=== PATIENT | female | born 1935 | race Caucasian/White ===

== ENCOUNTER 2017-02-28 15:08 | Inpatient (IN) | payer MEDICARE ==
[2017-02-28] MEDS ORDERED: Acetaminophen 500 MG TAB ONE (15:44)
[2017-02-28] MEDS ORDERED: Clindamycin/D5W 900 mg/50 ml Premix Bag ONE (15:49)
--- NOTE | 2017-02-28 16:05 | RAD ---
FRONTAL VIEW CHEST 02/28/17 No prior comparison. INDICATION: Fever. FINDINGS: There is subtle patchy density of the left lung base with slight blunting of the left costophrenic s ulcus. The cardiac silhouette is accentuated by portable technique. There is vascular calcification. Numerous leads overlie the chest limiting detail. IMPRESSION: Patchy left basilar opacity which may be on the basis of small volume pleural fluid with adjacent at electasis and/or pneumonia. Followup may be obtained with dedicated two view chest for continued ass essment. POS: NANCY
[2017-02-28 16:23] LABS: Lactic Acid - Sepsis 1.8 mmol/L (0.5-2.2)
[2017-02-28 16:24] LABS: Anion Gap 15 mmol/L (10-20); BUN (Urea Nitrogen) 19 mg/dL (9.8-20.1); Calc. Creatinine Clearance 0 mL/min (70-130); Calcium 8.9 mg/dL (7.8-10.44); Carbon Dioxide 26 mmol/L (23-31); Chloride 101 mmol/L (98-107); Estimated GFR-MDRD 34
--- NOTE | 2017-02-28 17:43 | PDOC.EVN ---
Event Note - Event Note Event Note: Patient seen and examined. Orders completed.
--- NOTE | 2017-02-28 18:01 | HP ---
DATE OF ADMISSION: 02/28/2017 PRIMARY CARE PHYSICIAN: Dr. Almanza. Patient resides at [facility]. CHIEF COMPLAINT: Transfer from [facility] for sepsis. HISTORY OF PRESENT ILLNESS: Patient is an 81-year-old female, residing at [facility], currently wheelchair dependent, who was brought into the emergency room with altered mentation along with pain in bilateral buttocks. Her workup in the emergency room was consistent with bilateral buttock abscess. She underwent an incision and drainage at [facility] under local anesthesia. She was transferred to this facility for hospital admission. Please note that due to patient's underlying cognitive status, not much information is available from the patient. History was obtained from the ER records. At this time, she denies any fevers, chills, or pain. She appears comfortable. PAST MEDICAL HISTORY: 1. Diabetes mellitus, type 2. 2. Hypertension. 3. Chronic diastolic heart failure with recent echocardiogram showing ejection fraction 60%-65% with grade 1 diastolic dysfunction. 4. Underlying dementia. 5. Hyperlipidemia. 6. Essential tremors. 7. Depression and anxiety. 8. Peripheral neuropathy. 9. Irritable bowel syndrome. 10. Gastroesophageal reflux disease. 11. Deconditioning. 12. Chronic kidney disease, stage 3. 13. Degenerative joint disease. PAST SURGICAL HISTORY: 1. Cholecystectomy. 2. Appendectomy. 3. Hysterectomy. 4. Cataract surgery. 5. Hiatal hernia repair. 6. Tonsillectomy. 7. Incision and drainage of the buttock abscess earlier today. ALLERGIES: Patient is allergic to CIPROFLOXACIN. CURRENT MEDICATIONS: According to the [facility] record. 1. Xanax 0.25 mg 3 times a day. 2. Aspirin 81 mg daily. 3. Bumex 0.5 mg daily. 4. Cymbalta 30 mg daily. 5. Aricept 5 mg at bedtime. 6. Gabapentin 600 mg 3 times a day. 7. Glimepiride 1 mg twice a day. 8. Loratadine 10 mg daily. 9. Meloxicam 15 mg daily. 10. Metformin 500 mg twice a day. 11. Milk of magnesia as needed. 12. MiraLax as needed. 13. Primidone 150 mg at bedtime. 14. Nystatin powder as needed. 15. Omeprazole 20 mg daily. 16. Plavix 75 mg daily. 17. Tramadol 50 mg at bedtime and p.r.n. 18. Tylenol as needed. SOCIAL HISTORY: As discussed above, the patient is wheelchair dependent. No smoking, alcohol, or drug use. FAMILY HISTORY: Cannot be obtained from the patient due to current cognitive status. REVIEW OF SYSTEMS: Cannot be obtained from the patient due to current cognitive status. PHYSICAL EXAMINATION: VITAL SIGNS: Current vital signs showed temperature of 101.7, respirations 20, pulse rate of 97, blood pressure of 149/68 with O2 saturation 96% on room air. GENERAL: An 81-year-old female appears to be in no distress. HEENT: Head, atraumatic and normocephalic. Sclerae anicteric. Moist mucous membrane. No oral lesion. NECK: Supple, no JVD, no carotid bruit. LUNGS: Show decreased air entry at bilateral bases with scattered rales. HEART: S1, S2 present. Regular rate and rhythm. No rubs or gallops. There is 2/6 systolic murmur over the mitral area. ABDOMEN: Obese, soft. Bowel sounds present. EXTREMITIES: Trace edema in bilateral lower extremities. SKIN: Warm and dry. LYMPH NODES: No palpable lymph nodes in the neck. NEUROLOGIC/PSYCHIATRIC EXAMINATION: Could not be reliably done due to current cognitive status. SKIN: The patient had gluteal abscess that was drained. We will assess with wound care. PERIPHERAL VASCULAR: Radial pulses palpable bilaterally. MUSCULOSKELETAL: No joint swelling or tenderness. LABORATORY FINDINGS: CBC showed WBC 12.5 with hemoglobin 11.3, hematocrit 34.9 , platelets 322. Chemistries showed sodium 137, potassium 4.5, chloride 97, bicarbonate 29, BUN of 19.6, creatinine 1.4, AST and ALT in normal range, albumin of 3.9. Lactic acid was 2.6. EKG by my review - SR. IMPRESSION: 1. Sepsis with acute organ dysfunction, secondary to gluteal abscess, status post incision and drainage. 2. Diabetes mellitus, type 2. 3. Acute kidney injury on chronic kidney disease, stage 3. 4. 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 5. Anxiety and depression. 6. Chronic diastolic heart failure. 7. Dementia. 8. Hypertension. 9. Dyslipidemia. 10. Gastroesophageal reflux disease. 11. Irritable bowel syndrome. 12. Degenerative joint disease, chronic anemia. PLAN: 1. The patient will be monitored on the telemetry unit. She will be started on broad-spectrum antibiotics. Blood cultures were done at [facility] per ER physician's report. We will carefully continue IV fluids due to history of diastolic heart failure. Insulin sliding scale. We will repeat lactic acid. General Surgery has been consulted. We will monitor closely for delirium. The son was notified by the ER nurse. 2. Code status: FULL CODE for now. To be clarified with the family when they arrive. Surrogate decision maker to be verified with the family when they arrive. 3. A.m. labs. MTDD
[2017-02-28] MEDS ORDERED: Acetaminophen 650 MG Suppository PR PRN (18:20)
[2017-02-28] MEDS ORDERED: Ondansetron ODT 4 MG TAB PO PRN (18:20)
[2017-02-28] MEDS ORDERED: Dextrose 5% in Water 1,000 ML IV PRN (18:20)
[2017-02-28] MEDS ORDERED: Polyethylene Glycol 3350 17 GM Packet PO PRN ×2 (18:20)
[2017-02-28] MEDS ORDERED: Milk Of Magnesia 30 ML UDCUP PO PRN (18:20)
[2017-02-28] MEDS ORDERED: Diabetic Tussin 200 MG/10 ML UDCUP PO PRN (18:20)
[2017-02-28] MEDS ORDERED: Bisacodyl 10 MG SUPP PR PRN (18:20)
[2017-02-28] MEDS ORDERED: VANCOMYCIN/ RENALLY ADJUST ANTIBIOTICS IVPB PRN (18:20)
[2017-02-28] MEDS ORDERED: Eucerin (Mineral Oil/Petrolatum,White) 30 gm Jar TOP PRN (18:20)
[2017-02-28] MEDS ORDERED: hydrALAZINE 20 MG/ML VIAL SLOW IVP PRN (18:20)
[2017-02-28] MEDS ORDERED: Ondansetron HCl/PF 4 MG/2 ML Vial IVP PRN (18:20)
[2017-02-28] MEDS ORDERED: Senokot 8.6 MG TAB PO PRN (18:20)
[2017-02-28] MEDS ORDERED: Loratadine 10 MG TAB PO PRN (18:20)
[2017-02-28] MEDS ORDERED: Nitroglycerin 0.4 MG TAB (25 Tab Bottle) PO PRN (18:20)
[2017-02-28] MEDS ORDERED: Dextrose 50% Abboject 50 ML SYRINGE SLOW IVP PRN (18:20)
[2017-02-28] MEDS ORDERED: Insulin Regular 300 UNITS/3 ML VIAL SC PRN (18:20)
[2017-02-28] MEDS ORDERED: Meropenem 1 GM in Sodium Chloride 0.9% 100 ML IVPB SCH (19:00)
[2017-02-28] MEDS: ALPRAZolam 0.25 MG TAB PO SCH (20:43)
[2017-02-28] MEDS: Donepezil HCl 5 MG TAB PO SCH (20:43)
[2017-02-28] MEDS: Famotidine 20 MG TAB PO SCH (20:43)
[2017-02-28] MEDS: Docusate 100 MG CAP PO SCH (20:43)
[2017-02-28] MEDS: Gabapentin 300 MG CAP PO SCH (20:44)
[2017-02-28] MEDS: Nystatin Powder 15 GM BOT TOP SCH (20:44)
[2017-02-28] MEDS: Heparin 5,000 UNITS/ML VIAL SC SCH (20:44)
[2017-02-28] MEDS: Primidone 50 MG TAB PO SCH (20:46)
[2017-02-28] MEDS: traMADol HCl 50 MG TAB PO SCH (20:46)
[2017-02-28] MEDS ORDERED: Famotidine 20 MG TAB PO SCH (21:00)
[2017-02-28] MEDS: Sodium Chloride 0.9% 1,000 ML IV SCH (21:07)
[2017-03-01 01:06] LABS: Bilirubin Negative (Negative); Blood, Urine Trace (Negative); Glucose, Urine (Dipstick) Negative (Negative); Ketone, Urine Negative (Negative); Nitrite Negative (Negative); Protein, Urine (Dipstick) 30 mg/dL (Neg-Trace); Urobilinogen 0.2 mg/dL (0.2-1.0)
[2017-03-01 01:09] LABS: Bacteria/HPF None Seen HPF (None Seen); Hyaline Casts/LPF 0-3 HYALINE CAST LPF (0-3 Hyaline); Squamous Epithelial None Seen HPF (0-3)
[2017-03-01 01:16] LABS: Transitional Epithelial 0-3 HPF (0-3); Yeast-All Forms None Seen HPF (None Seen)
--- NOTE | 2017-03-01 04:48 | CON ---
DATE OF CONSULTATION: 03/01/2017 REASON FOR CONSULTATION: Bilateral buttock abscesses. HISTORY: Ms. Rene is an 81-year-old [facility] patient, who presented to her local emergency r oom with altered mentation and pain in bilateral buttocks. She was determined to be septic with amado lulitis and bilateral buttock abscesses. She underwent I and D as both buttock abscesses in [facility] and had packing of the abscess cavities, was transferred to [place] for admission. The patien patrice is no longer complaining of pain and says that she is feeling okay. She is able to answer simple questions, but she is unable to provide much history. For example, she is unable to say how long he leah langford has been bothering her and whether she has had any unusual activity or changes in her routi ne. She is nonambulatory and uses a wheelchair to get around in the [facility], and is unable to tell me whether she has a pad on her wheelchair. PAST MEDICAL HISTORY: Type 2 diabetes, hypertension, mild diastolic heart failure with preserved ej ection fraction of 60%-65%, dementia, hyperlipidemia, GERD, chronic renal insufficiency, and periphe ral neuropathy. PAST SURGICAL HISTORY: Open cholecystectomy, open appendectomy, hysterectomy, cataracts, hiatal her ender repair, tonsillectomy, and bilateral buttock abscess drainage. ALLERGIES: She has a reported allergy to CIPROFLOXACIN. OUTPATIENT MEDICATIONS: Include Xanax, aspirin, Bumex, Cymbalta, Aricept, gabapentin, glimepiride, loratadine, meloxicam, metformin, primidone, omeprazole, Plavix, and multiple p.r.n. SOCIAL HISTORY: She does not give any history of alcohol, drug, or tobacco abuse. She resides in a [facility] and is nonambulatory using a wheelchair to get around. FAMILY HISTORY: Noncontributory. REVIEW OF SYSTEMS: Very limited, but the patient denies hurting anywhere besides her buttocks. She specifically denies cough, sore throat, runny nose, dysuria or frequency or diarrhea or abdominal p ain. PHYSICAL EXAMINATION: VITAL SIGNS: Patient has been afebrile since her admission. Heart rate in the 80s, respirations 20 , 97% saturated on low flow oxygen. Blood pressure 140/64. GENERAL: Reveals a pleasant elderly woman in no acute distress, who is lying on an air mattress. S he appears completely comfortable. She is not flushed or toxic in appearance. She is not jaundiced or icteric. HEENT: Unremarkable. NECK: Supple, without lymphadenopathy or thyroid nodules. HEART: Regular in its rate and rhythm without murmurs, rubs, or gallops. LUNGS: Clear to auscultation bilaterally. ABDOMEN: Soft, nontender, nondistended with multiple healed surgical incisions and no palpable mass es or hernias. EXTREMITIES: Warm and well perfused without edema. On bilateral buttock, she has indurated areas w ith a central incision and the cavity, which is packed. There is no undrained abscess identified, j ust induration tissues surrounding cavity. No expressible pus and no evidence of the deep tracking. She has moderate cellulitis of both buttocks. NEUROLOGIC: No focal deficits, but diffusely weak. PSYCHIATRIC: Pleasant and oriented to self and to being in the hospital. LABORATORY DATA: Creatinine mildly elevated at 1.48. Lactate is 1.8. There is no recent CBC in [facility] computer. ASSESSMENT: Bilateral buttock abscesses, which appear to be adequately drained. We are going to co ntinue with packing and antibiotics. The cellulitis does not improve and imaging can be considered to make sure there is no deep extension of the infectious process, but this does not appear to be [facility] case clinically. I will continue to follow the patient with the Wound Care team.
[2017-03-01 05:34] LABS: #Eosinphils 0.3 thou/uL (0.0-0.7); #Lymphocytes 1.4 thou/uL (1.20-3.40); #Monocytes 0.9 thou/uL (0.11-0.59); #Neutrophils 6.4 thou/uL (1.40-6.50); %Basophils 0.5 % (0.0-1.0); %Lymphocytes 15.9 % (21.0-51.0); %Monocytes 9.8 % (0.0-10.0); Hematocrit 28.2 % (36.0-47.0); Mean Platelet Volume 6.6 fL (7.4-10.4); Red Blood Cell (RBC) Count 2.81 mill/uL (4.20-5.40)
[2017-03-01 06:04] LABS: ALT (SGPT) 8 U/L (8-55); AST (SGOT) 10 U/L (5-34); Alkaline Phosphatase 53 U/L (40-150); Anion Gap 9 mmol/L (10-20); BUN (Urea Nitrogen) 15 mg/dL (9.8-20.1); Bilirubin, Total 0.5 mg/dL (0.2-1.2); Calc. Creatinine Clearance 47 mL/min (70-130); Calcium 8.7 mg/dL (7.8-10.44); Carbon Dioxide 28 mmol/L (23-31); Chloride 105 mmol/L (98-107); Estimated GFR-MDRD 48; Globulin 3.1 g/dL (2.4-3.5); Protein, Total 6.2 g/dL (6.0-8.3)
[2017-03-01] MEDS ORDERED: FLU VACC TS2017-18 (>65YR) 0.5 ML SYRINGE IM ONE (09:00)
[2017-03-01] MEDS: Meropenem 1 GM, Admixture Fee 1 EACH in Sodium Chloride 0.9% 100 ML IVPB SCH ×2 (09:16→20:51)
[2017-03-01] MEDS: Multivit, Therapeutic 1 TAB PO SCH (09:21)
[2017-03-01] MEDS: ALPRAZolam 0.25 MG TAB PO SCH ×3 (09:21→20:54)
[2017-03-01] MEDS: Aspirin 81 mg Enteric Coated Tablet PO SCH (09:21)
[2017-03-01] MEDS: Folic Acid 1 MG TAB PO SCH (09:21)
[2017-03-01] MEDS: Gabapentin 300 MG CAP PO SCH ×3 (09:21→20:53)
[2017-03-01] MEDS: Docusate 100 MG CAP PO SCH ×2 (09:21→20:54)
[2017-03-01] MEDS: Clopidogrel Bisulfate 75 MG TAB PO SCH (09:21)
[2017-03-01] MEDS: Heparin 5,000 UNITS/ML VIAL SC SCH ×2 (09:39→20:51)
[2017-03-01] MEDS: Nystatin Powder 15 GM BOT TOP SCH ×2 (09:43→21:07)
--- NOTE | 2017-03-01 10:02 | PDOC.PN ---
- Subjective Encounter Start Date: 03/01/17 Encounter Start Time: 09:25 Subjective: No specific complaint. -: Feels better. - Objective Resuscitation Status: Resuscitation Status FULL:Full Resuscitation Vital Signs & Weight: Vital Signs (12 hours) Temp Pulse Resp BP Pulse Ox 03/01/17 07:58 99 F 85 20 150/67 H 97 03/01/17 04:00 98.5 F 76 20 136/68 98 03/01/17 00:00 98.1 F 71 20 138/63 98 Weight Weight 166 lb 12.8 oz I&O: 02/28/17 03/01/17 03/02/17 06:59 06:59 06:59 Intake Total 812 Output Total 620 Balance 192 Result Diagrams: 03/01/17 05:03 03/01/17 05:03 Additional Labs: Accuchecks 02/28/17 20:38 POC Glucose 183 H Phys Exam - Physical Examination Constitutional: NAD HEENT: PERRLA, moist MMs, sclera anicteric Neck: no JVD Respiratory: clear to auscultation bilateral Cardiovascular: RRR Gastrointestinal: soft, non-tender Musculoskeletal: no edema Psychiatric: A&O x 3 Dx/Plan (1) Sepsis Code(s): A41.9 - SEPSIS, UNSPECIFIED ORGANISM Status: Acute Plan: Continue antibiotics.. Comment: Most likely from buttock abscesses.. Clinicalyy better. (2) CHF (congestive heart failure) Code(s): I50.9 - HEART FAILURE, UNSPECIFIED Status: Chronic Qualifiers: Congestive heart failure type: diastolic Plan: continue current management. 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 - Plan -: Continue current therapy.. * .
[2017-03-01] MEDS ORDERED: Vancomycin HCl 1 GM in Premix Bag 1 BAG IVPB SCH (12:00)
[2017-03-01 13:16] VITALS: BMI 26.9
--- NOTE | 2017-03-01 13:30 | PRG ---
DATE OF SERVICE: 03/01/2017 Ms. Rene is growing Staph aureus from her bilateral buttock abscesses. The cellulitis is slightl y improved. The induration is about the same. The abscess cavities are clean. No expressible puru lence. Wound care team is to continue doing daily irrigation and packing. No new recommendations.
[2017-03-01] MEDS: Sodium Chloride 0.9% 1,000 ML IV SCH (14:25)
[2017-03-01] MEDS: Acetaminophen 325 MG TAB PO PRN (17:34)
[2017-03-01] MEDS: Donepezil HCl 5 MG TAB PO SCH (20:52)
[2017-03-01] MEDS: Primidone 50 MG TAB PO SCH (20:52)
[2017-03-01] MEDS: traMADol HCl 50 MG TAB PO SCH (20:52)
[2017-03-01] MEDS: Famotidine 20 MG TAB PO SCH (20:54)
[2017-03-02 05:04] LABS: #Eosinphils 0.3 thou/uL (0.0-0.7); #Lymphocytes 1.4 thou/uL (1.20-3.40); %Basophils 0.3 % (0.0-1.0); %Eosinophils 3.5 % (0.0-10.0); %Lymphocytes 16.1 % (21.0-51.0); %Monocytes 11.2 % (0.0-10.0); Hematocrit 32.8 % (36.0-47.0); Mean Platelet Volume 6.5 fL (7.4-10.4); White Blood Cell (WBC) Count 8.8 thou/uL (4.8-10.8)
[2017-03-02 05:23] LABS: ALT (SGPT) 10 U/L (8-55); AST (SGOT) 13 U/L (5-34); Alkaline Phosphatase 58 U/L (40-150); Anion Gap 9 mmol/L (10-20); BUN (Urea Nitrogen) 11 mg/dL (9.8-20.1); Bilirubin, Total 0.3 mg/dL (0.2-1.2); Calc. Creatinine Clearance 45 mL/min (70-130); Calcium 9.1 mg/dL (7.8-10.44); Carbon Dioxide 31 mmol/L (23-31); Chloride 100 mmol/L (98-107); Estimated GFR-MDRD 46; Globulin 3.3 g/dL (2.4-3.5); Protein, Total 6.6 g/dL (6.0-8.3)
[2017-03-02] MEDS: Meropenem 1 GM, Admixture Fee 1 EACH in Sodium Chloride 0.9% 100 ML IVPB SCH ×2 (08:55→20:00)
[2017-03-02] MEDS: ALPRAZolam 0.25 MG TAB PO SCH ×3 (08:57→20:02)
[2017-03-02] MEDS: Aspirin 81 mg Enteric Coated Tablet PO SCH (08:57)
[2017-03-02] MEDS: Bumetanide 1 MG TAB PO SCH (08:57)
[2017-03-02] MEDS: Nystatin Powder 15 GM BOT TOP SCH ×2 (08:58→21:26)
[2017-03-02] MEDS: Multivit, Therapeutic 1 TAB PO SCH (08:58)
[2017-03-02] MEDS: Docusate 100 MG CAP PO SCH ×2 (08:58→20:02)
[2017-03-02] MEDS: Heparin 5,000 UNITS/ML VIAL SC SCH ×2 (08:58→20:02)
[2017-03-02] MEDS: Gabapentin 300 MG CAP PO SCH ×3 (08:58→20:02)
[2017-03-02] MEDS: Clopidogrel Bisulfate 75 MG TAB PO SCH (08:58)
[2017-03-02] MEDS: Folic Acid 1 MG TAB PO SCH (08:58)
[2017-03-02] MEDS: Sodium Chloride 0.9% 1,000 ML IV SCH (09:03)
--- NOTE | 2017-03-02 09:16 | PDOC.PN ---
- Subjective Encounter Start Date: 03/02/17 Encounter Start Time: 08:50 Subjective: No specific complaint. -: Feels better. -: Had high grade fever yesterday, BxC sent. - Objective Resuscitation Status: Resuscitation Status FULL:Full Resuscitation MAR Reviewed: Yes Vital Signs & Weight: Vital Signs (12 hours) Temp Pulse Resp BP Pulse Ox 03/02/17 07:55 98.6 F 83 20 167/74 H 97 03/02/17 04:00 98.4 F 83 20 184/79 H 03/02/17 03:54 97 Weight Admit Weight 168 lb 12.8 oz Weight 166 lb 12.8 oz I&O: 03/01/17 03/02/17 03/03/17 06:59 06:59 06:59 Intake Total 812 1645 Output Total 620 2250 Balance 192 -605 Result Diagrams: 03/02/17 04:01 03/02/17 04:01 Additional Labs: Accuchecks 03/02/17 03/01/17 03/01/17 05:47 20:56 16:42 POC Glucose 182 H 202 H 145 H 03/01/17 02/28/17 11:35 18:18 POC Glucose 156 H 187 H Radiology Reviewed by me: Yes Phys Exam - Physical Examination Constitutional: NAD HEENT: PERRLA, moist MMs, sclera anicteric Neck: no JVD Respiratory: clear to auscultation bilateral Cardiovascular: RRR Gastrointestinal: soft, non-tender, no distention, positive bowel sounds Musculoskeletal: no edema Neurological: moves all 4 limbs Psychiatric: normal affect Dx/Plan (1) Sepsis Code(s): A41.9 - SEPSIS, UNSPECIFIED ORGANISM Status: Acute Plan: f/u BxC Comment: Most likely from buttock abscesses.. Clinicalyy better. 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 - Plan -: Continue current management. -: f/u BxC. * .
[2017-03-02] MEDS: traMADol HCl 50 MG TAB PO PRN (10:09)
[2017-03-02 11:32] LABS: Vancomycin, Trough 8.8 ug/mL
[2017-03-02] MEDS: Acetaminophen 325 MG TAB PO PRN (12:05)
[2017-03-02] MEDS: Vancomycin HCl 1.5 GM in Sodium Chloride 0.9% 250 ML 300 ML IVPB SCH (13:00)
[2017-03-02] MEDS: Primidone 50 MG TAB PO SCH (20:02)
[2017-03-02] MEDS: Donepezil HCl 5 MG TAB PO SCH (20:02)
[2017-03-02] MEDS: Famotidine 20 MG TAB PO SCH (20:03)
[2017-03-02] MEDS: traMADol HCl 50 MG TAB PO SCH (20:03)
[2017-03-03] MEDS: Sodium Chloride 0.9% 1,000 ML IV SCH (05:17)
[2017-03-03] MEDS: Meropenem 1 GM, Admixture Fee 1 EACH in Sodium Chloride 0.9% 100 ML IVPB SCH ×2 (08:36→21:19)
[2017-03-03] MEDS: Aspirin 81 mg Enteric Coated Tablet PO SCH (08:39)
[2017-03-03] MEDS: Gabapentin 300 MG CAP PO SCH ×3 (08:39→21:18)
[2017-03-03] MEDS: Docusate 100 MG CAP PO SCH ×2 (08:39→21:19)
[2017-03-03] MEDS: Folic Acid 1 MG TAB PO SCH (08:39)
[2017-03-03] MEDS: Clopidogrel Bisulfate 75 MG TAB PO SCH (08:39)
[2017-03-03] MEDS: Bumetanide 1 MG TAB PO SCH (08:39)
[2017-03-03] MEDS: Heparin 5,000 UNITS/ML VIAL SC SCH ×2 (08:40→21:20)
[2017-03-03] MEDS: Nystatin Powder 15 GM BOT TOP SCH ×2 (08:41→21:20)
[2017-03-03] MEDS: Multivit, Therapeutic 1 TAB PO SCH (08:41)
[2017-03-03] MEDS: ALPRAZolam 0.25 MG TAB PO SCH ×3 (09:51→21:19)
--- NOTE | 2017-03-03 11:02 | PDOC.PN ---
- Subjective Encounter Start Date: 03/03/17 Encounter Start Time: 10:00 Patient seen and examined. No new complaints. No overnight events - Objective Resuscitation Status: Resuscitation Status FULL:Full Resuscitation MAR Reviewed: Yes Vital Signs & Weight: Vital Signs (12 hours) Temp Pulse Resp BP Pulse Ox 03/03/17 09:33 95 03/03/17 07:43 98.3 F 80 18 164/72 H 95 03/03/17 04:06 96 03/03/17 04:00 98.5 F 82 16 159/70 H Weight Admit Weight 168 lb 12.8 oz Weight 166 lb 12.8 oz I&O: 03/02/17 03/03/17 03/04/17 06:59 06:59 06:59 Intake Total 1645 3374 Output Total 2250 2475 Balance -605 899 Result Diagrams: 03/02/17 04:01 03/02/17 04:01 Additional Labs: Accuchecks 03/03/17 03/02/17 03/02/17 05:15 20:31 16:27 POC Glucose 180 H 217 H 174 H 03/02/17 11:53 POC Glucose 157 H EKG Reviewed by me: Yes (Tele SR) Phys Exam - Physical Examination Constitutional: NAD Respiratory: no wheezing, no rhonchi Cardiovascular: RRR, no rub Gastrointestinal: soft, non-tender, positive bowel sounds Neurological: moves all 4 limbs Dx/Plan - Plan IMPRESSION: 1. Sepsis with acute organ dysfunction, secondary to gluteal abscess.s/p incision and drainage. 2. Diabetes mellitus, type 2. on sliding scale 3. Acute kidney injury on chronic kidney disease, stage 3. improving 4. Diabetic peripheral neuropathy 5. Anxiety and depression. 6. Chronic diastolic heart failure. Compensated 7. Dementia. 8. Hypertension. 9. Dyslipidemia. 10. Gastroesophageal reflux disease. 11. Irritable bowel syndrome. 12. Degenerative joint disease 13. Chronic anemia. PLAN: * cont Vancomycin/Zosyn * AM labs * Transfer to medical * Gen surg following * Cont to monitor * Cont current meds as below * dc IVF due to h/o CHF * Consult ID for Antibiotic recommendations Review of Systems - Review of Systems Respiratory: negative: Cough, Dry, Shortness of Breath, Hemoptysis, SOB with Excertion, Pleuritic Pain, Sputum, Wheezing Cardiovascular: negative: Chest Pain, Palpitations, Orthopnea, Paroxysmal Noc. Dyspnea, Edema, Light Headedness, Other Gastrointestinal: negative: Nausea, Vomiting, Abdominal Pain, Diarrhea, Constipation, Melena, Hematochezia, Other - Medications/Allergies Allergies/Adverse Reactions: Allergies Allergy/AdvReac Type Severity Reaction Status Date / Time ciprofloxacin [From Cipro] Allergy Verified 02/28/17 18:36 Medications: Current Medications Acetaminophen (Tylenol) 650 mg PO Q4H PRN PRN Reason: Headache/Fever or Pain Last Admin: 03/02/17 12:05 Dose: 650 mg Acetaminophen (Tylenol) 650 mg DC Q4H PRN PRN Reason: Headache/Fever or Pain Albuterol/Ipratropium (Duoneb) 3 ml NEB [id number] PRN PRN Reason: SOB &/or Wheezing Alprazolam (Xanax) 0.25 mg PO TID [facility] Last Admin: 03/03/17 09:51 Dose: 0.25 mg Aspirin (Ecotrin) 81 mg PO DAILY [facility] Last Admin: 03/03/17 08:39 Dose: 81 mg Bisacodyl (Dulcolax) 10 mg DC Q24H PRN PRN Reason: Constipation Bumetanide (Bumex) 0.5 mg PO DAILY [facility] Last Admin: 03/03/17 08:39 Dose: 0.5 mg Clopidogrel Bisulfate (Plavix) 75 mg PO DAILY [facility] Last Admin: 03/03/17 08:39 Dose: 75 mg Dextrose/Water (Dextrose 50%) 25 gm SLOW IVP PRN PRN PRN Reason: Hypoglycemia Docusate Sodium (Colace) 100 mg PO BID [facility] Last Admin: 03/03/17 08:39 Dose: 100 mg Donepezil HCl (Aricept) 5 mg PO HS [facility] Last Admin: 03/02/17 20:02 Dose: 5 mg Duloxetine HCl (Cymbalta) 30 mg PO DAILY [facility] Last Admin: 03/03/17 08:39 Dose: 30 mg Famotidine (Pepcid) 20 mg PO Q24HR [facility] Last Admin: 03/02/17 20:03 Dose: 20 mg Folic Acid (Folvite) 1 mg PO DAILY [facility] Last Admin: 03/03/17 08:39 Dose: 1 mg Gabapentin (Neurontin) 600 mg PO TID [facility] Last Admin: 03/03/17 08:39 Dose: 600 mg Glucagon (Glucagon) 1 mg IM PRN PRN PRN Reason: Hypoglycemia Guaifenesin (Robitussin Sf) 200 mg PO Q4H PRN PRN Reason: Cough Heparin Sodium (Porcine) (Heparin) 5,000 units SC BID [facility] Last Admin: 03/03/17 08:40 Dose: 5,000 units Hydralazine HCl (Apresoline) 10 mg SLOW IVP Q4H PRN PRN Reason: SBP Greater Than 180 Last Admin: 03/02/17 12:05 Dose: 10 mg Dextrose/Water (D5w) 1,000 mls @ 0 mls/hr IV .Q0M PRN; As Directed PRN Reason: Hypoglycemia Sodium Chloride (Normal Saline 0.9%) 1,000 mls @ 50 mls/hr IV .Q20H [facility] Last Admin: 03/03/17 05:17 Dose: 1,000 mls Meropenem 1 gm/ Miscellaneous Medication 1 each/ Sodium Chloride 100 mls @ 200 mls/hr IVPB 0800,2000 [facility] Last Admin: 03/03/17 08:36 Dose: 100 mls Vancomycin HCl 1.5 gm/ Sodium (Chloride) 300 mls @ 200 mls/hr IVPB 1200 [facility] Last Admin: 03/02/17 13:00 Dose: 300 mls Insulin Human Regular (Humulin R) 0 units SC .MILD SLIDING SCALE PRN PRN Reason: Mild Correctional Scale Insulin Human Regular (Humulin R) 0 units SC .BEDTIME SLIDING SC PRN PRN Reason: Bedtime Correctional Scale Loratadine (Claritin) 10 mg PO DAILYPRN PRN PRN Reason: Allergies Magnesium Hydroxide (Milk Of Magnesium) 30 ml PO DAILYPRN PRN PRN Reason: Constipation Mineral Oil/White Petrolatum (Eucerin Cream) 0 gm TOP BIDPRN PRN PRN Reason: Dry Skin Miscellaneous Medication (Pharmacy To Dose) 1 each IVPB PRN PRN PRN Reason: Pharmacy to dose Multivitamins (Theragran) 1 tab PO DAILY [facility] Last Admin: 03/03/17 08:41 Dose: 1 tab Nitroglycerin (Nitrostat) 0.4 mg PO Q5MIN PRN PRN Reason: Chest Pain Nystatin (Mycostatin Powder) 0 gm TOP BID [facility] Last Admin: 03/03/17 08:41 Dose: 1 applic Ondansetron HCl (Zofran Odt) 4 mg PO Q6H PRN PRN Reason: Nausea/Vomiting Ondansetron HCl (Zofran) 4 mg IVP Q6H PRN PRN Reason: Nausea/Vomiting Polyethylene Glycol (Miralax) 17 gm PO DAILYPRN PRN PRN Reason: Constipation Primidone (Mysoline) 150 mg PO HS [facility] Last Admin: 03/02/17 20:02 Dose: 150 mg Senna (Senokot) 2 tab PO HSPRN PRN PRN Reason: Constipation Last Admin: 03/02/17 17:55 Dose: 2 tab Sodium Chloride (Flush - Normal Saline) 10 ml IVF Q12HR [facility] Last Admin: 03/03/17 08:38 Dose: Not Given Sodium Chloride (Flush - Normal Saline) 10 ml IVF PRN PRN PRN Reason: Saline Flush Tramadol HCl (Ultram) 50 mg PO Q4H PRN PRN Reason: Moderate Pain (4-6) Last Admin: 03/02/17 10:09 Dose: 50 mg Tramadol HCl (Ultram) 50 mg PO HS [facility] Last Admin: 03/02/17 20:03 Dose: 50 mg
[2017-03-03] MEDS: Insulin Regular 300 UNITS/3 ML VIAL SC PRN (11:58)
[2017-03-03] MEDS: Vancomycin HCl 1.5 GM in Sodium Chloride 0.9% 250 ML 300 ML IVPB SCH (11:59)
[2017-03-03] MEDS: traMADol HCl 50 MG TAB PO PRN (14:09)
[2017-03-03] MEDS: Acetaminophen 325 MG TAB PO PRN (14:09)
[2017-03-03] MEDS: traMADol HCl 50 MG TAB PO SCH (21:19)
[2017-03-03] MEDS: Donepezil HCl 5 MG TAB PO SCH (21:19)
[2017-03-03] MEDS: Primidone 50 MG TAB PO SCH (21:20)
[2017-03-03] MEDS: Famotidine 20 MG TAB PO SCH (21:22)
--- NOTE | 2017-03-04 06:06 | PRG ---
DATE OF SERVICE: 03/03/2017 SUBJECTIVE: Ms. Rene states that she is feeling okay. Her nurse states that she is spiking feve rs in the afternoons and has done that again today. We did some blood cultures yesterday when she h ad her elevated fever. On examination, the cellulitis on her buttocks has slightly improved as has the induration more on the right than on the left. There is no expressible drainage from the I\T\D sites and the indurated area does not appear fixed to the underlying tissues, so I doubt deep extens ion. Nothing has grown yet on her blood cultures from yesterday. 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 ASSESSMENT: Cellulitis and bilateral buttock abscesses, slowly improving with antibiotics and wound treatment. No indication for surgical intervention at this time.
[2017-03-04 06:24] LABS: #Basophils 0.1 thou/uL (0.0-0.2); #Eosinphils 0.2 thou/uL (0.0-0.7); #Lymphocytes 1.3 thou/uL (1.20-3.40); #Monocytes 0.6 thou/uL (0.11-0.59); #Neutrophils 3.9 thou/uL (1.40-6.50); %Basophils 1.4 % (0.0-1.0); %Eosinophils 3.5 % (0.0-10.0); %Lymphocytes 21.4 % (21.0-51.0); %Monocytes 10.3 % (0.0-10.0); Hematocrit 30.5 % (36.0-47.0); Mean Platelet Volume 6.5 fL (7.4-10.4); Red Blood Cell (RBC) Count 3.08 mill/uL (4.20-5.40); White Blood Cell (WBC) Count 6.2 thou/uL (4.8-10.8)
[2017-03-04 06:38] LABS: ALT (SGPT) 11 U/L (8-55); AST (SGOT) 16 U/L (5-34); Alkaline Phosphatase 56 U/L (40-150); Anion Gap 10 mmol/L (10-20); BUN (Urea Nitrogen) 12 mg/dL (9.8-20.1); Bilirubin, Total 0.3 mg/dL (0.2-1.2); Calc. Creatinine Clearance 50 mL/min (70-130); Calcium 9.1 mg/dL (7.8-10.44); Carbon Dioxide 31 mmol/L (23-31); Chloride 99 mmol/L (98-107); Estimated GFR-MDRD 51; Globulin 3.5 g/dL (2.4-3.5); Magnesium 2.2 mg/dL (1.6-2.6); Protein, Total 6.6 g/dL (6.0-8.3)
[2017-03-04] MEDS: Multivit, Therapeutic 1 TAB PO SCH (08:24)
[2017-03-04] MEDS: Docusate 100 MG CAP PO SCH ×2 (08:25→20:07)
[2017-03-04] MEDS: Gabapentin 300 MG CAP PO SCH ×3 (08:25→20:08)
[2017-03-04] MEDS: Aspirin 81 mg Enteric Coated Tablet PO SCH (08:26)
[2017-03-04] MEDS: Folic Acid 1 MG TAB PO SCH (08:26)
[2017-03-04] MEDS: Clopidogrel Bisulfate 75 MG TAB PO SCH (08:26)
[2017-03-04] MEDS: ALPRAZolam 0.25 MG TAB PO SCH ×3 (08:27→20:07)
[2017-03-04] MEDS: Bumetanide 1 MG TAB PO SCH (08:28)
[2017-03-04] MEDS: Nystatin Powder 15 GM BOT TOP SCH ×2 (08:30→20:09)
[2017-03-04] MEDS: Heparin 5,000 UNITS/ML VIAL SC SCH ×2 (08:30→20:14)
[2017-03-04] MEDS: Meropenem 1 GM, Admixture Fee 1 EACH in Sodium Chloride 0.9% 100 ML IVPB SCH ×2 (10:47→20:07)
[2017-03-04] MEDS: Vancomycin HCl 1.5 GM in Sodium Chloride 0.9% 250 ML 300 ML IVPB SCH (11:54)
[2017-03-04 12:05] LABS: Vancomycin, Trough 18.3 ug/mL
[2017-03-04] MEDS: traMADol HCl 50 MG TAB PO PRN (12:39)
[2017-03-04] MEDS: Insulin Regular 300 UNITS/3 ML VIAL SC PRN (17:57)
[2017-03-04] MEDS: Primidone 50 MG TAB PO SCH (20:07)
[2017-03-04] MEDS: traMADol HCl 50 MG TAB PO SCH (20:08)
[2017-03-04] MEDS: Donepezil HCl 5 MG TAB PO SCH (20:12)
[2017-03-04] MEDS: Famotidine 20 MG TAB PO SCH (20:12)
--- NOTE | 2017-03-04 20:53 | PDOC.PN ---
- Subjective Encounter Start Date: 03/04/17 Encounter Start Time: 09:00 Patient seen and examined. No new complaints. No overnight events - Objective Resuscitation Status: Resuscitation Status FULL:Full Resuscitation MAR Reviewed: Yes Vital Signs & Weight: Vital Signs (12 hours) Temp Pulse Resp BP Pulse Ox 03/04/17 20:00 98.3 F 73 20 142/78 H 99 03/04/17 11:57 98.6 F 75 16 149/68 H 99 Weight Admit Weight 168 lb 12.8 oz Weight 166 lb 12.8 oz I&O: 03/03/17 03/04/17 03/05/17 06:59 06:59 06:59 Intake Total 3374 710 1460 Output Total 4935 1700 Balance 899 710 -240 Result Diagrams: 03/04/17 05:54 03/04/17 05:54 Additional Labs: Accuchecks 03/04/17 03/04/17 03/04/17 20:20 11:57 04:22 POC Glucose 151 H 136 H 139 H 03/03/17 20:29 POC Glucose 159 H Phys Exam - Physical Examination Constitutional: NAD Respiratory: no wheezing, no rhonchi Cardiovascular: RRR, no rub Gastrointestinal: soft, non-tender, positive bowel sounds Neurological: moves all 4 limbs Dx/Plan - Plan IMPRESSION: 1. Sepsis with acute organ dysfunction, secondary to gluteal abscess.s/p incision and drainage. on Vanc/Meropenem 2. Diabetes mellitus, type 2. on sliding scale 3. Acute kidney injury on chronic kidney disease, stage 3. improving 4. Diabetic peripheral neuropathy. 5. Anxiety and depression. 6. Chronic diastolic heart failure. Compensated 7. Dementia. 8. Hypertension. 9. Dyslipidemia. 10. Gastroesophageal reflux disease. 11. Irritable bowel syndrome. 12. Degenerative joint disease 13. Chronic anemia. PLAN: * cont Vancomycin/Zosyn - ID consulted * Gen surg following * Cont to monitor * Cont current meds as below * Consult ID for Antibiotic recommendations * Cont PT * DC planning Review of Systems - Review of Systems Respiratory: negative: Cough, Dry, Shortness of Breath, Hemoptysis, SOB with Excertion, Pleuritic Pain, Sputum, Wheezing Cardiovascular: negative: Chest Pain, Palpitations, Orthopnea, Paroxysmal Noc. Dyspnea, Edema, Light Headedness, Other - Medications/Allergies Allergies/Adverse Reactions: Allergies Allergy/AdvReac Type Severity Reaction Status Date / Time ciprofloxacin [From Cipro] Allergy Verified 02/28/17 18:36 Medications: Current Medications Acetaminophen (Tylenol) 650 mg PO Q4H PRN PRN Reason: Headache/Fever or Pain Last Admin: 03/03/17 14:09 Dose: 650 mg Acetaminophen (Tylenol) 650 mg AR Q4H PRN PRN Reason: Headache/Fever or Pain Albuterol/Ipratropium (Duoneb) 3 ml NEB [id number] PRN PRN Reason: SOB &/or Wheezing Alprazolam (Xanax) 0.25 mg PO TID [facility] Last Admin: 03/04/17 20:07 Dose: 0.25 mg Aspirin (Ecotrin) 81 mg PO DAILY [facility] Last Admin: 03/04/17 08:26 Dose: 81 mg Bisacodyl (Dulcolax) 10 mg AR Q24H PRN PRN Reason: Constipation Bumetanide (Bumex) 0.5 mg PO DAILY [facility] Last Admin: 03/04/17 08:28 Dose: 0.5 mg Clopidogrel Bisulfate (Plavix) 75 mg PO DAILY [facility] Last Admin: 03/04/17 08:26 Dose: 75 mg Dextrose/Water (Dextrose 50%) 25 gm SLOW IVP PRN PRN PRN Reason: Hypoglycemia Docusate Sodium (Colace) 100 mg PO BID [facility] Last Admin: 03/04/17 20:07 Dose: 100 mg Donepezil HCl (Aricept) 5 mg PO HS [facility] Last Admin: 03/04/17 20:12 Dose: 5 mg Duloxetine HCl (Cymbalta) 30 mg PO DAILY [facility] Last Admin: 03/04/17 08:26 Dose: 30 mg Famotidine (Pepcid) 20 mg PO Q24HR [facility] Last Admin: 03/04/17 20:12 Dose: 20 mg Folic Acid (Folvite) 1 mg PO DAILY [facility] Last Admin: 03/04/17 08:26 Dose: 1 mg Gabapentin (Neurontin) 600 mg PO TID [facility] Last Admin: 03/04/17 20:08 Dose: 600 mg Glucagon (Glucagon) 1 mg IM PRN PRN PRN Reason: Hypoglycemia Guaifenesin (Robitussin Sf) 200 mg PO Q4H PRN PRN Reason: Cough Heparin Sodium (Porcine) (Heparin) 5,000 units SC BID [facility] Last Admin: 03/04/17 20:14 Dose: 5,000 units Hydralazine HCl (Apresoline) 10 mg SLOW IVP Q4H PRN PRN Reason: SBP Greater Than 180 Last Admin: 03/02/17 12:05 Dose: 10 mg Dextrose/Water (D5w) 1,000 mls @ 0 mls/hr IV .Q0M PRN; As Directed PRN Reason: Hypoglycemia Meropenem 1 gm/ Miscellaneous Medication 1 each/ Sodium Chloride 100 mls @ 200 mls/hr IVPB 0800,2000 [facility] Last Admin: 03/04/17 20:07 Dose: 100 mls Vancomycin HCl 1.5 gm/ Sodium (Chloride) 300 mls @ 200 mls/hr IVPB 1200 [facility] Last Admin: 03/04/17 11:54 Dose: 300 mls Insulin Human Regular (Humulin R) 0 units SC .MILD SLIDING SCALE PRN PRN Reason: Mild Correctional Scale Last Admin: 03/04/17 17:57 Dose: 3 units Insulin Human Regular (Humulin R) 0 units SC .BEDTIME SLIDING SC PRN PRN Reason: Bedtime Correctional Scale Loratadine (Claritin) 10 mg PO DAILYPRN PRN PRN Reason: Allergies Magnesium Hydroxide (Milk Of Magnesium) 30 ml PO DAILYPRN PRN PRN Reason: Constipation Mineral Oil/White Petrolatum (Eucerin Cream) 0 gm TOP BIDPRN PRN PRN Reason: Dry Skin Miscellaneous Medication (Pharmacy To Dose) 1 each IVPB PRN PRN PRN Reason: Pharmacy to dose Multivitamins (Theragran) 1 tab PO DAILY [facility] Last Admin: 03/04/17 08:24 Dose: 1 tab Nitroglycerin (Nitrostat) 0.4 mg PO Q5MIN PRN PRN Reason: Chest Pain Nystatin (Mycostatin Powder) 0 gm TOP BID [facility] Last Admin: 03/04/17 20:09 Dose: 1 applic Ondansetron HCl (Zofran Odt) 4 mg PO Q6H PRN PRN Reason: Nausea/Vomiting Ondansetron HCl (Zofran) 4 mg IVP Q6H PRN PRN Reason: Nausea/Vomiting Polyethylene Glycol (Miralax) 17 gm PO DAILYPRN PRN PRN Reason: Constipation Primidone (Mysoline) 150 mg PO HS [facility] Last Admin: 03/04/17 20:07 Dose: 150 mg Senna (Senokot) 2 tab PO HSPRN PRN PRN Reason: Constipation Last Admin: 03/02/17 17:55 Dose: 2 tab Sodium Chloride (Flush - Normal Saline) 10 ml IVF Q12HR [facility] Last Admin: 03/04/17 20:09 Dose: 10 ml Sodium Chloride (Flush - Normal Saline) 10 ml IVF PRN PRN PRN Reason: Saline Flush Tramadol HCl (Ultram) 50 mg PO Q4H PRN PRN Reason: Moderate Pain (4-6) Last Admin: 03/04/17 12:39 Dose: 50 mg Tramadol HCl (Ultram) 50 mg PO HS [facility] Last Admin: 03/04/17 20:08 Dose: 50 mg
--- NOTE | 2017-03-04 23:31 | CON ---
DATE OF CONSULTATION: 03/04/2017 REASON FOR CONSULTATION: Gluteal inflammatory process. HISTORY OF PRESENT ILLNESS: An 81-year-old with history of type 2 diabetes mellitus, hypertension, diastolic CHF, essential tremors, and mobility impairment secondary to neuropathy, who is a care home resident and is a wheelchair bound. Patient reportedly has frequent episodes of urinary incont inence due to inability to access the restroom facilities and lack of help from nursing staff to mov e her to the proper area, therefore, I frequently has episodes of self soilage mostly from urine and she has a cushion in the wheelchair, but it is not a ROHO cushion, anyways the patient presented wi th altered mental status and pain in the gluteal area, was seen in [facility] and had an in cision and debridement of what appeared to be an abscess, right and left gluteal region, then transf erred over here. Patient has received broad spectrum antimicrobial therapy with meropenem and vanco mycin and has experienced the improvement, consultation with General Surgery was completed and the i mpression was cellulitis and bilateral gluteal abscesses improving without indication for surgical i ntervention. Currently, Ms. Dobbs is feeling better. She denies any headaches, visual symptoms, sore throat, odynophagia, or dysphagia. No dyspnea or chest pain, no abdominal pain, and no diarrhe a. She has a Couch catheter inserted. She has chronic mobility impairment, weakness in lower extre mities. She has a chronic tremor, which is intermittent in the left upper extremity. PAST MEDICAL HISTORY: Type 2 diabetes, hypertension, diastolic CHF, hyperlipidemia, essential tremo rs, neuropathy, irritable bowel syndrome, GERD, deconditioning. PAST SURGICAL HISTORY: Includes cholecystectomy, appendectomy, hysterectomy, cataract surgery, hiat al hernia, tonsillectomy. ALLERGIES: CIPROFLOXACIN. MEDICATIONS: Xanax, aspirin, Bumex, Cymbalta, Aricept, gabapentin, glimepiride, loratadine, Meloxic am, metformin, Maalox, primidone, omeprazole, Plavix, tramadol, and currently on meropenem and vanco mycin. SOCIAL HISTORY: Wheelchair dependent, never smoker. FAMILY HISTORY: Noncontributory. PHYSICAL EXAMINATION: VITAL SIGNS: Showed normal temperature since the 03/02/2017, when she had 100 and 03/01/2017, when it was 103. SKIN EXAM: Shows the areas of ulceration in the gluteal region with the surrounding erythema. She has a peripheral IV access and Couch catheter. HEENT: Ocular movements are conjugate. Sclerae white. Pupils are equal. Oral cavity with no abno rmalities. NECK: Supple, no jugular venous distention. LUNGS: Symmetric, clear breath sounds. HEART: S1 and S2, regular rate without murmurs. No S3 or S4. ABDOMEN: Not distended. No ascites. No bladder distention and no organomegaly. EXTREMITIES: She has diffuse stiffness. She is able to move toes, but cannot lift knees from bed. She has sluggish movements in the upper extremities with intermittent intention tremor of the right upper extremity. NEUROLOGIC: She is awake, alert, oriented, follows commands, fairly decent recollection. LABORATORY DATA AND IMAGING: White cell count 9000, now at 6.2, hemoglobin 10, MCV 99, platelets 38 4, with normal differential. Sodium 136, creatinine 1.04, and transaminase is normal, albumin 3.1. Urinalysis with moderate leukocyte esterase, greater than 50 wbc's. Vancomycin trough 18.3. Micro biology with MRSA from the gluteal sample with fairly broad resistant profile except for gentamicin, linezolid, vancomycin, rifampin, and, trimethoprim sulfate CRISTHIAN for vancomycin is 1. Imaging studie s includes a chest x-ray with patchy left basilar opacity. ASSESSMENT: Neuropathy with mobility impairment, degenerative joint disease, diastolic CHF, type 2 diabetes, now with evidence of inflammatory process, right and left gluteal region, no evidence of b acteremia secondary to a methicillin-resistant Staphylococcus aureus. DISCUSSION: The process appears to be superficial and had had enough debridement in the emergency r oom. We will discontinue meropenem and continue vancomycin alone and then transitioned to combinati on of rifampin and Bactrim for 10 days following discharge, linezolid is an option as well, but [facility] are not willing to provide it. We will have to monitor blood cultures until final report. Evidently, the blood cultures turn positive, she will need a PICC line placement and protr acted IV vancomycin treatment, otherwise, Bactrim and rifampin alone.
--- OUTSIDE RECORDS SUMMARY | 2017-03-05 07:47 | XMS | Clinical Summary ---
:1935 Author Organization [facility] Address [address] [place] [address] Phone Care Team Providers Name Role Phone , Primary Care Provider Unavailable Allergies Not on File Current Medications Not on file Active Problems Not on file Social History Tobacco Use Types Packs/Day Years Used Date Never Assessed Sex Assigned at Date Recorded Not on file Last Filed Vital Signs Not on file Plan of Treatment Not on file Results Not on filefrom Last 3 Months
[2017-03-05] MEDS: Meropenem 1 GM, Admixture Fee 1 EACH in Sodium Chloride 0.9% 100 ML IVPB SCH (08:31)
[2017-03-05] MEDS: Docusate 100 MG CAP PO SCH (08:32)
[2017-03-05] MEDS: Aspirin 81 mg Enteric Coated Tablet PO SCH (08:32)
[2017-03-05] MEDS: Gabapentin 300 MG CAP PO SCH ×2 (08:32→15:00)
[2017-03-05] MEDS: ALPRAZolam 0.25 MG TAB PO SCH ×2 (08:32→15:00)
[2017-03-05] MEDS: Bumetanide 1 MG TAB PO SCH (08:33)
[2017-03-05] MEDS: Clopidogrel Bisulfate 75 MG TAB PO SCH (08:33)
[2017-03-05] MEDS: Multivit, Therapeutic 1 TAB PO SCH (08:33)
[2017-03-05] MEDS: Folic Acid 1 MG TAB PO SCH (08:33)
[2017-03-05] MEDS: Nystatin Powder 15 GM BOT TOP SCH (08:34)
[2017-03-05] MEDS: Heparin 5,000 UNITS/ML VIAL SC SCH (08:34)
--- NOTE | 2017-03-05 08:51 | PRG ---
DATE OF SERVICE: 03/05/2017 SUBJECTIVE: Ms. Rene has no complaints today. She has not been having high fevers. Her celluli tis on the left side is quite a bit better. The cellulitis on the right is slightly better. Indura tion has improved. There is no purulent drainage from her abscesses. ASSESSMENT: Bilateral buttock abscess is improving with wound care and antibiotics. No new recomme ndation.
[2017-03-05] MEDS: traMADol HCl 50 MG TAB PO PRN (11:16)
[2017-03-05] MEDS: Vancomycin HCl 1.5 GM in Sodium Chloride 0.9% 250 ML 300 ML IVPB SCH (11:17)
[2017-03-05 11:45] VITALS: BP 149/74; TEMP 99.4
--- NOTE | 2017-03-05 12:46 | DIS ---
DATE OF ADMISSION: 02/28/2017 DATE OF DISCHARGE: 03/05/2017 PRIMARY CARE PHYSICIAN: Shane Almanza M.D. DISCHARGE DISPOSITION: alf home. PRIMARY DISCHARGE DIAGNOSES: 1. Sepsis with acute organ dysfunction. 2. Acute kidney failure on chronic kidney disease stage 3. 3. Gluteal abscess required incision and drainage. 4. Urinary tract infection with Escherichia coli. SECONDARY DISCHARGE DIAGNOSES: Anxiety, depression, chronic diastolic heart failure, dementia, hype rtension, dyslipidemia, gastroesophageal reflux disease, diabetic peripheral neuropathy, chronic kid ritu disease stage 3, diabetes type 2, chronic normocytic anemia, irritable bowel syndrome, and degen erative joint disease. PRIMARY PROCEDURE/OPERATION: Incision and debridement was performed by Dr. Jacobson. RADIOLOGICAL INVESTIGATION: Chest x-ray was unremarkable. SIGNIFICANT LABS: 1. WBC 6.2, hemoglobin 10.2, platelet of 384, sodium 136, potassium 3.9, chloride 99, BUN 12, creat inine 1.04, glucose 145, calcium 9.1. 2. LFT: AST 16, ALT 11, alkaline phosphatase 56, albumin 3.1. 3. Urinalysis: Leukocyte esterase moderate. Urine culture grew E. coli. Blood culture was negati ve. Culture from abscess grew MRSA. DISCHARGE MEDICATIONS: Bactrim-DS 1 tablet twice daily for 10 more days, Xanax 0.25 mg p.o. t.i.d., Tylenol Arthritis 650 mg p.r.n., aspirin 81 mg p.o. daily, Bumex 0.5 mg p.o. daily, Plavix 75 mg p. o. daily, Cymbalta 30 mg p.o. daily, Aricept 5 mg p.o. at bedtime, gabapentin 600 mg p.o. t.i.d., Am aryl 1 mg p.o. b.i.d., Claritin 10 mg p.o. daily p.r.n., milk of magnesia 30 mL p.o. daily p.r.n., M obic 15 mg p.o. daily, nystatin topical application b.i.d., omeprazole 20 mg p.o. daily, MiraLax 17 grams p.o. daily, Mysoline 150 mg p.o. at bedtime, metformin 500 mg p.o. b.i.d., tramadol 100 mg p.o . b.i.d. p.r.n. and 50 mg p.o. at bedtime. CONTRAINDICATIONS: None. CODE STATUS: FULL CODE. INPATIENT CONSULTANTS: Dr. Jacobson was following while in hospital. TEST RESULTS PENDING ON DISCHARGE: None. ALLERGIES: CIPROFLOXACIN. DISCHARGE PLAN: Post-hospital, the patient will follow up with primary care physician in 1 week. HOSPITAL COURSE: An 81-year-old female who was admitted by Dr. Bowen Abbott on 02/28/2017, please se e his H and P for further details. This patient was mainly admitted for sepsis. She was having acu te kidney failure on top of chronic kidney disease stage 3. She was diagnosed with bilateral buttoc k abscess. The patient required incision and debridement at [facility] under local anesthes ia. Her culture grew MRSA. She also had urinary tract infection, which grew E. coli. Based on cul ture and sensitivity result, the patient was discharged on oral Bactrim therapy. The patient is doing very well. The patient is getting wound care while in hospital. She remained afebrile and hemodynamically stable. The patient is seen and examined at bedside today. All review of systems was reviewed with her and negative. PHYSICAL EXAMINATION: VITAL SIGNS: Currently, temperature 99.4, pulse 81, respiratory rate 22, blood pressure 149/74, ramin ght 166 pounds. GENERAL: The patient is currently alert, awake, no acute distress. HEAD: Normocephalic, atraumatic. EYES: Pupils round, reactive to light. Extraocular muscles intact. ENT: Oropharynx within normal limits. Moist mucous membranes. No oral lesions. No pharyngeal dillon thema, no exudate. NECK: Supple. LUNGS: Clear. CARDIAC: S1, S2 regular without any murmur. ABDOMEN: Soft and benign. Wound is covered with a dressing. Paperwork for discharge done. Discharge medication reconciliation done. Total time spent on discharge day 31 minutes.
== END 2017-03-05 15:28 | DRG 872 ==
LOC: ERS 15:08 → 2NO 18:14 → T4-B 03-03 20:35
PROVIDERS: ADMIT Internal Medicine; ATTEND Internal Medicine
DX: A41.9 Sepsis, unspecified organism (principal); N17.9 Acute kidney failure, unspecified; E11.22 Type 2 diabetes mellitus with diabetic chronic kidney disease; I13.0 Hypertensive heart and chronic kidney disease with heart failure and stage 1 through stage 4 chronic kidney disease, or unspecified chronic kidney disease; I50.32 Chronic diastolic (congestive) heart failure; F03.90 Unspecified dementia, unspecified severity, without behavioral disturbance, psychotic disturbance, mood disturbance, and anxiety; L02.31 Cutaneous abscess of buttock; L03.317 Cellulitis of buttock; N39.0 Urinary tract infection, site not specified; Z99.3 Dependence on wheelchair; N18.3 Chronic kidney disease, stage 3 (moderate); E78.5 Hyperlipidemia, unspecified; G25.0 Essential tremor; F32.9 Major depressive disorder, single episode, unspecified; F41.9 Anxiety disorder, unspecified; E11.42 Type 2 diabetes mellitus with diabetic polyneuropathy; K58.9 Irritable bowel syndrome, unspecified; K21.9 Gastro-esophageal reflux disease without esophagitis; M19.90 Unspecified osteoarthritis, unspecified site; Z88.1 Allergy status to other antibiotic agents; Z79.01 Long term (current) use of anticoagulants; Z79.84 Long term (current) use of oral hypoglycemic drugs; Z79.82 Long term (current) use of aspirin; R65.20 Severe sepsis without septic shock; B95.62 Methicillin resistant Staphylococcus aureus infection as the cause of diseases classified elsewhere; B96.20 Unspecified Escherichia coli [E. coli] as the cause of diseases classified elsewhere; D64.9 Anemia, unspecified
CPT/HCPCS: 36415; 36416; 51702; 71010; 80048; 80053; 80202; 81001; 83605; 83735; 85025; 87040; 90471; 90682; 93005; 94760; 96365; A4216; G0008; G8978-GP-CN; G8979-GP-CM; G8987-GO-CM; G8988-GO-CK; J0360; J1644; J1815; J2185; J3370; J3490; J7050; Q2036

== ENCOUNTER 2018-08-17 21:24 | Inpatient (IN) | payer MEDICARE ==
[2018-08-17 22:16] LABS: Actual Bicarbonate (HCO3a) 28.9 mEq/L (22-28); Analyzer IN Cardio ER; Base Excess (BEa) 4.2 mEq/L (-2.0 to +3.0); CO2 Tension 43.4 mmHg (35.0-45.0); Calcium, Ionized 1.13 mmol/L (1.12-1.30); Carboxyhemoglobin (COHb) 0.3 gm% (0.0-3.0); O2 Tension (PaO2) 99.2 mmHg (> 60.0); Potassium - ABG Lab 4.09 mmol/L (3.70-5.30); pH, Arterial 7.44 (7.35-7.45)
[2018-08-17 22:22] LABS: Puncture Site RRA
[2018-08-18] MEDS ORDERED: Sodium Chloride 0.9% 1,000 ML IV SCH (00:20)
[2018-08-18] MEDS ORDERED: Ondansetron ODT 4 MG TAB SL PRN (00:20)
[2018-08-18] MEDS ORDERED: Ondansetron PF 4 MG/2 ML Vial IVP PRN ×2 (00:20→00:56)
[2018-08-18] MEDS ORDERED: Acetaminophen 325 MG TAB PO PRN (00:20)
[2018-08-18] MEDS ORDERED: Piperacillin/Tazobactam 3.375 GM in Sodium Chloride 0.9% 100 ML IVPB SCH (00:56)
[2018-08-18] MEDS ORDERED: Bisacodyl 5 MG TAB PO PRN ×2 (00:56→08:02)
[2018-08-18] MEDS ORDERED: Piperacillin/Tazobactam 2.25 GM in Sodium Chloride 0.9% 100 ML IVPB SCH (01:30)
[2018-08-18] MEDS: Sodium Chloride 0.9% 1,000 ML IV SCH ×2 (02:03→15:39)
[2018-08-18 05:50] LABS: ALT (SGPT) 25 U/L (8-55); AST (SGOT) 79 U/L (5-34); Albumin 3.4 g/dL (3.4-4.8); Alkaline Phosphatase 50 U/L (40-150); Anion Gap 16 mmol/L (10-20); BUN (Urea Nitrogen) 65 mg/dL (9.8-20.1); Bilirubin, Total 0.3 mg/dL (0.2-1.2); Calc. Creatinine Clearance 19 mL/min (70-130); Carbon Dioxide 28 mmol/L (23-31); Chloride 104 mmol/L (98-107); Estimated GFR-MDRD 17; Globulin 3.4 g/dL (2.4-3.5); Glucose 187 mg/dL (83-110); Potassium 4.2 mmol/L (3.5-5.1); Protein, Total 6.8 g/dL (6.0-8.3); Sodium 144 mmol/L (136-145)
[2018-08-18] MEDS: Piperacillin/Tazobactam 2.25 GM in Sodium Chloride 0.9% 100 ML IVPB SCH ×4 (05:53→23:31)
[2018-08-18 05:54] LABS: Band 23 % (5-11); Hemoglobin 11.1 g/dL (12.0-16.0); Lymphocytes 10 % (21-51); MDiff Complete? YES; Mean Corpuscular HGB CONC 31.9 g/dL (32.0-36.0); Mean Corpuscular Hemoglobin 30.4 pg (27.0-31.0); Mean Corpuscular Volume 95.4 fL (78.0-98.0); Mean Platelet Volume 7.6 fL (7.4-10.4); Monocytes 2 % (0-10); Neutrophil 65 % (42-75); Platelet Count 213 thou/uL (130-400); Platelet Morphology Comment Appears Adequate; RBC Distribution Width 13.3 % (11.5-14.5); Red Blood Cell (RBC) Count 3.63 mill/uL (4.20-5.40); White Blood Cell (WBC) Count 11.9 thou/uL (4.8-10.8)
[2018-08-18] MEDS ORDERED: Dextrose 50% Abboject 50 ML SYRINGE SLOW IVP PRN (07:59)
[2018-08-18] MEDS ORDERED: Dextrose 5% in Water 1,000 ML IV PRN (07:59)
[2018-08-18] MEDS ORDERED: hydrALAZINE 20 MG/ML VIAL SLOW IVP PRN (08:01)
[2018-08-18] MEDS ORDERED: Non-Formulary Item 1 EACH (Loratadine [Claritin] 10 MG) PO PRN (08:02)
[2018-08-18] MEDS ORDERED: Polyethylene Glycol 3350 17 GM Packet PO PRN (08:02)
[2018-08-18] MEDS ORDERED: Loratadine 10 MG TAB PO PRN (08:13)
[2018-08-18] MEDS ORDERED: DULAGLUTIDE 0.75 MG SC SCH (08:15)
[2018-08-18] MEDS ORDERED: Enoxaparin Sodium 40 MG/0.4 ML SYRINGE SC SCH (09:00)
[2018-08-18] MEDS ORDERED: Non-Formulary Item 1 EACH (Gabapentin [Gabapentin] 600 MG) PO SCH (09:00)
[2018-08-18] MEDS ORDERED: Famotidine/PF 20 mg/2ml Vial SLOW IVP SCH (09:00)
[2018-08-18] MEDS ORDERED: Non-Formulary Item 1 EACH (Omeprazole [Omeprazole] 20 MG) PO SCH (09:00)
[2018-08-18] MEDS: Aspirin 81 mg Enteric Coated Tablet PO SCH (09:30)
[2018-08-18] MEDS: DULoxetine 30 MG CAP PO SCH (09:30)
[2018-08-18] MEDS: Clopidogrel Bisulfate 75 MG TAB PO SCH (09:30)
[2018-08-18] MEDS: Glimepiride 1 MG TAB PO SCH ×2 (09:31→20:34)
[2018-08-18] MEDS: Multivitamin W/ Minerals 1 TAB PO SCH (09:31)
[2018-08-18] MEDS: Gabapentin 300 MG CAP PO SCH ×3 (09:31→20:33)
[2018-08-18] MEDS: Enoxaparin Sodium 30 MG/0.3 ML SYRINGE SC SCH (09:31)
--- NOTE | 2018-08-18 10:04 | CON ---
DATE OF CONSULTATION: 08/18/2018 TIME SPENT: 50 minutes time. Of that time, greater 50% was spent with the patient hospital. REASON FOR CONSULTATION: IM care. HISTORY OF PRESENT ILLNESS: The patient is an 83-year-old female, who was transferred from [place] for treatment of low blood pressure, influenza, cough, and congestion. She has been sick for several days. I was readily told she was very demented, but I found her to be quite pleasant, and she answered most questions without any difficulty at all. I am told that she tested positive for type A flu in [place]. She has now been started on Tamiflu as well as IV antibiotics. PAST MEDICAL HISTORY: 1. Diabetes mellitus type 2. 2. Hypertension. 3. Diastolic congestive heart failure. 4. Hyperlipidemia. 5. Essential tremors. 6. Neuropathy. 7. Irritable bowel syndrome. 8. Gastroesophageal reflux. 9. Deconditioning. PAST SURGICAL HISTORY: 1. Cholecystectomy. 2. Appendectomy. 3. Hysterectomy. 4. Cataract surgery. 5. Hiatal hernia repair. 6. Tonsillectomy. ALLERGIES: CIPROFLOXACIN. MEDICATIONS: Prior to admission: 1. Tylenol No.3 one to two tablets every 8 hours as needed. 2. Atorvastatin 80 mg nightly. 3. Vitamin C 500 mg b.i.d. 4. Lorazepam 0.5 mg at bedtime. 5. Insulin aspart. 6. Topical lidocaine. 7. Senna. 8. Trulicity 0.75 mg subcutaneously over 7 days. 9. Delsym cough syrup as needed. 10. Amlodipine 10 mg daily. 11. Dulcolax 5 mg as needed. 12. Arginaid powder. 13. Theragran-M. 14. Tessalon. 15. Xanax 0.25 mg at bedtime. 16. Milk of magnesia. 17. Glucophage 250 mg b.i.d. 18. Mysoline 150 mg nightly. 19. MiraLAX 17 g daily. 20. Omeprazole 20 mg daily. 21. Nystatin topically t.i.d. 22. Mobic 15 mg daily. 23. Claritin 10 mg daily. 24. Amaryl 1 mg b.i.d. 25. Gabapentin 600 mg t.i.d. 26. Aricept 5 mg nightly. 27. Cymbalta 30 mg daily. 28. Plavix 75 mg daily. 29. Bumex 1 mg daily. 30. Aspirin 81 mg daily. 31. Tylenol 650 mg as needed. REVIEW OF SYSTEMS: Otherwise negative. PHYSICAL EXAMINATION: VITAL SIGNS: Temperature 100.8, pulse 99, blood pressure 129/66, O2 saturation 98% on nasal cannula. GENERAL: The patient appears toxic and ill. She has a profound cough. HEENT: She can barely keep her right eye open, left eye clear. Oropharynx clear. NECK: No JVD. LUNGS: Coarse rhonchi bilaterally with harsh cough. CARDIAC: S1-S2 regular. ABDOMEN: Soft, nontender. EXTREMITIES: No clubbing, cyanosis, or edema. LABORATORY DATA: Sodium 144, potassium 4.2, chloride 104, CO2 of 28, BUN 65, creatinine 2.6, glucose 187. White blood cell count 11.9, hematocrit 34.7, platelet count 213, 65% neutrophils, 23% bands. IMAGING STUDIES: Chest x-ray at outlying facility apparently showed a right middle lobe infiltrate, that is not available for review at this time here. I will try to look at over the [employer] system in the office. ASSESSMENT: 1. Right middle lobe pneumonia. 2. Influenza type A. 3. Advanced age. 4. Diabetes mellitus. PLAN: 1. Hydration till correct the prerenal azotemia. 2. Agree with Tamiflu and broad-spectrum IV antibiotics. 3. The patient is at high risk for decompensation over the next 24 hours, should be kept in the intermediate care in a low threshold, transfer to CCU should she worsen. We will be happy to follow with you. Job ID: [id number]
--- NOTE | 2018-08-18 11:39 | HP ---
PRIMARY CARE PHYSICIAN: Dr. Almanza. CHIEF COMPLAINT: Fevers, chills, and cough. HISTORY OF PRESENT ILLNESS: The history of present illness is extremely limited as the patient has advanced dementia and she is unable to give me much detail beyond what was found in the records. Ms. Rene resides at a penit[facility]iary in [place] and she was visited by the primary care physician, Dr. Almanza, as it was noted that she was having cough and congestion. Apparently, this has been going on for the past 2 to 3 days. It is also noted in the records that she was having some fever and chills as well. It was noted in the records that she was also hypoxic and there was mention of hypotension, however, was unable to find the exact blood pressure reading. They did a chest x-ray on her and it was found that she had a right middle lobe infiltrate and she was sent to our facility for further evaluation. Actually, she was sent to the ER in [place]. There, they did lab work as well as influenza screen and found that she was influenza positive and due to the severity of her symptoms, she was sent to our facility for further treatment. Currently, the patient is receiving a neb treatment. She is able to talk to me. She is disoriented however and when asked questions, she gives a positive review of systems to everything. She believes it is 2017 and she believes it is the month of September, but she does know that she is in a hospital. REVIEW OF SYSTEMS: Essentially unobtainable due to the patient's mental status. It is unreliable. PAST MEDICAL HISTORY: This is taken from a previous history and physical dated 02/28/[address] Abbott and includes diabetes mellitus type 2, hypertension, congestive heart failure diastolic type, essential tremor, chronic kidney disease stage 3, gastroesophageal reflux disease, and dementia. PAST SURGICAL HISTORY: She has had a cholecystectomy, appendectomy, hysterectomy, cataract surgery, tonsillectomy, I and D of abscesses, and also has a history of chronic decubitus and sacral ulcers. ALLERGIES: TO CIPROFLOXACIN AND CEPACOL. FAMILY HISTORY: Unknown and unobtainable. SOCIAL HISTORY: She resides in the penitentiary. According to previous records, she appears to be wheelchair bound. She is a nonsmoker and nondrinker and in the record, she has an [id number] DNR. MEDICATIONS: These are taken from her records and include: 1. Docusate sodium once a day. 2. Mysoline 150 mg at bedtime. 3. MiraLAX 17 g daily. 4. Omeprazole 20 mg daily. 5. Nystatin one application t.i.d. 6. Multivitamins once a day. 7. Metformin 250 mg twice daily. 8. Mobic 15 mg daily. 9. Milk of Mag 30 mL daily. 10. Lorazepam 0.5 mg at bedtime. 11. Claritin 10 mg daily. 12. Lidocaine topical. 13. NovoLog insulin on a sliding scale. 14. Glimepiride 1 mg twice daily. 15. Gabapentin 600 mg t.i.d. 16. Cymbalta 30 mg daily. 17. Trulicity 0.75 mg subcu q.week. 18. Aricept 5 mg at bedtime. 19. Delsym 10 mL q.12. 20. Plavix 75 mg daily. 21. Bumex 1 mg daily. 22. Dulcolax 5 mg daily. 23. Tessalon Perles 100 mg t.i.d. 24. Lipitor 80 mg at bedtime. 25. Aspirin 81 mg daily. 26. Vitamin C 500 mg twice daily. 27. Amlodipine 10 mg daily. 28. Xanax 0.25 mg at bedtime. 29. Tylenol Arthritis p.r.n. PHYSICAL EXAMINATION: GENERAL: She is alert and oriented to person and place. She is well developed and well nourished. She does not appear to be in any acute distress. VITAL SIGNS: Her blood pressure was 136/68, heart rate 90, respiratory rate of 22, temperature was 100.8, and O2 sats 95% on 2 L. HEENT: Pupils are equal, round, and reactive. Extraocular muscles are intact. Her sclerae are anicteric. Throat; there is no erythema, no exudates. NECK: No adenopathy. No bruits. LUNGS: She has bilateral rhonchi and some wheezing. There was no rales. CARDIOVASCULAR: She had a normal S1 and S2. There is no S3 or S4. No murmurs, clicks or rubs. ABDOMEN: Obese. It is soft, nontender, and nondistended. Positive for bowel sounds. There is no rebound, no guarding. EXTREMITIES: She has some upper extremity edema. No significant lower extremity edema. She does have what appears to be some muscle atrophy in her lower extremities. There is some mild knee joint effusion. NEUROLOGIC: She has significant weakness in her lower extremities, but she is able to move them. No weakness in the upper extremities and otherwise nonfocal. SKIN AND INTEGUMENT: There is no skin changes, no rash. LABORATORY RESULTS: Sodium is 144, potassium 4.2, chloride is 104, CO2 is 28, BUN of 65, creatinine 2.67, glucose is 187. White blood cell count 11.9, hemoglobin 11.1, hematocrit is 34.7, and platelet count was 213. ABG; pH is 7.4, pCO2 is 43, PO2 is 99.2. Her chest x-ray, this is reported from [place], there was infiltrate in the right mid lung. EKG, this is by my reading, sinus tachycardia, the rate was 102. She had some nonspecific ST wave changes and she was also influenza A positive. ASSESSMENT: 1. This is a pleasant 83-year-old female, who presents to the emergency room with acute hypoxic respiratory failure likely as a result of influenza pneumonia. However, she could possibly have a healthcare acquired pneumonia as well given her status, residing in a penitentiary. Therefore, she will be treated for both at least initially. She will be placed in the IMCU. Apparently, she was initially on BiPAP and has since been weaned off this. We will continue Tamiflu and broad-spectrum antibiotics to cover for healthcare associated organisms. We will get a procalcitonin to help us in the decision to deescalate antibiotics in the next day or two, and also since she is in the IMCU, Pulmonary Medicine consult will be obtained. 2. For diabetes mellitus, she will be placed on a diabetic diet as well as sliding scale insulin. 3. She appears to have some acute on chronic kidney injury. She will be hydrated cautiously given her history of chronic diastolic heart failure and reassess her creatinine in the a.m. 4. Chronic diastolic heart failure. This appears to be compensated. 5. Hypertension. We will reconcile and restart her home medications and have p.r.n. medication available as needed. Job ID: [id number]
[2018-08-18] MEDS: Oseltamivir 6 MG/ML ORAL SUSP PO SCH ×2 (11:41→20:35)
[2018-08-18] MEDS ORDERED: TRULICITY INJ SC SCH (12:00)
[2018-08-18 18:19] LABS: Vancomycin, Random 10.8 ug/mL (See Comment)
[2018-08-18] MEDS: HumaLOG 300 UNITS/3 ML VIAL SC PRN ×2 (18:33→20:50)
[2018-08-18] MEDS: Atorvastatin Calcium 40 MG TAB PO SCH (20:33)
[2018-08-18] MEDS: Primidone 50 MG TAB PO SCH (20:34)
[2018-08-18] MEDS: Lorazepam 0.5 MG TAB PO SCH (20:39)
[2018-08-18] MEDS ORDERED: Non-Formulary Item 1 EACH (Atorvastatin Calcium [Lipitor] 80 MG) PO SCH (21:00)
[2018-08-18] MEDS ORDERED: Vancomycin HCl 750 MG in Sodium Chloride 0.9% 250 ML 250 ML IVPB SCH (21:00)
[2018-08-18] MEDS: Acetaminophen 325 MG TAB PO PRN (23:36)
[2018-08-19 04:49] LABS: #Lymphocytes 1.3 thou/uL (1.20-3.40); #Monocytes 0.5 thou/uL (0.11-0.59); #Neutrophils 8.3 thou/uL (1.40-6.50); %Basophils 0.2 % (0.0-1.0); %Eosinophils 0.2 % (0.0-10.0); %Lymphocytes 12.4 % (21.0-51.0); %Monocytes 4.6 % (0.0-10.0); %Neutrophils 82.6 % (42.0-75.0); Hemoglobin 10.6 g/dL (12.0-16.0); Mean Corpuscular HGB CONC 31.5 g/dL (32.0-36.0); Mean Corpuscular Hemoglobin 30.4 pg (27.0-31.0); Mean Corpuscular Volume 96.4 fL (78.0-98.0); Mean Platelet Volume 7.5 fL (7.4-10.4); Platelet Count 230 thou/uL (130-400); RBC Distribution Width 13.3 % (11.5-14.5)
[2018-08-19 05:04] LABS: Anion Gap 17 mmol/L (10-20); BUN (Urea Nitrogen) 41 mg/dL (9.8-20.1); Calc. Creatinine Clearance 28 mL/min (70-130); Carbon Dioxide 24 mmol/L (23-31); Chloride 113 mmol/L (98-107); Estimated GFR-MDRD 26; Glucose 223 mg/dL (83-110); Sodium 150 mmol/L (136-145)
[2018-08-19] MEDS: Piperacillin/Tazobactam 2.25 GM in Sodium Chloride 0.9% 100 ML IVPB SCH ×4 (05:06→23:37)
[2018-08-19] MEDS: Sodium Chloride 0.9% 1,000 ML IV SCH (05:07)
[2018-08-19] MEDS ORDERED: Digoxin 0.5 MG/2 ML AMP SLOW IVP SCH (06:00)
[2018-08-19] MEDS: Diltiazem HCl 125 MG, Admixture Fee 1 EACH in Sodium Chloride 0.9% 100 ML IVPB SCH ×2 (06:03→19:27)
[2018-08-19] MEDS: HumaLOG 300 UNITS/3 ML VIAL SC PRN ×3 (06:12→17:04)
[2018-08-19] MEDS: Aspirin 81 mg Enteric Coated Tablet PO SCH (09:26)
[2018-08-19] MEDS: Enoxaparin Sodium 30 MG/0.3 ML SYRINGE SC SCH (09:27)
[2018-08-19] MEDS: Gabapentin 300 MG CAP PO SCH ×3 (09:27→20:27)
[2018-08-19] MEDS: Clopidogrel Bisulfate 75 MG TAB PO SCH (09:27)
[2018-08-19] MEDS: DULoxetine 30 MG CAP PO SCH (09:27)
[2018-08-19] MEDS: Multivitamin W/ Minerals 1 TAB PO SCH (09:28)
[2018-08-19] MEDS: Oseltamivir 6 MG/ML ORAL SUSP PO SCH ×2 (09:28→20:28)
[2018-08-19] MEDS: Glimepiride 1 MG TAB PO SCH ×2 (09:28→20:28)
[2018-08-19] MEDS: Acetaminophen 325 MG TAB PO PRN ×3 (09:29→20:27)
--- NOTE | 2018-08-19 10:02 | PRG ---
DATE OF SERVICE: 08/19/2018 SUBJECTIVE: The patient says she is doing well; however, she did go into atrial fibrillation with a rapid ventricular response last night. OBJECTIVE: VITAL SIGNS: Temperature is 98.1, pulse 130 to 140, blood pressure 117/69, O2 saturation 94%. HEENT: Unremarkable. NECK: No JVD. LUNGS: Clear breath sounds. CARDIAC: S1, S2. Irregularly irregular, tachycardic. ABDOMEN: Soft, nontender. EXTREMITIES: No edema. LABORATORY DATA: White blood cell count 10, hematocrit 33.7, and platelet count 230. Sodium 150, potassium 4, chloride , CO2 of 24, BUN 41, creatinine 1.8, glucose 223. ASSESSMENT: 1. Atrial fibrillation, rapid ventricular response. 2. Influenza type A. PLAN: 1. Increase Cardizem 10 mg/hour because of continued rapid rate. 2. Continue Tamiflu. 3. I will go ahead and switch her to half-normal saline given that she has developed hypernatremia. Job ID: [id number]
[2018-08-19] MEDS: Sodium Chloride 0.45% 1,000 ML IV SCH (12:06)
--- NOTE | 2018-08-19 15:00 | PRG ---
DATE OF SERVICE: 08/19/2018 SUBJECTIVE: The patient says she is feeling okay. She reports the she is coughing, but feels like she is breathing relatively well at the moment. She reports no appetite. OBJECTIVE: VITAL SIGNS: T-max 101.4, temperature 99.8, BP is 141/81 with a high of 152/84 and a low of this morning of 90/72, averaging 120s to 130s systolic, and O2 saturations 94% on 2 L. GENERAL APPEARANCE: Age-appropriate female, she is in no distress. She is awake and talking, although not terribly verbose. HEART: Difficult to auscultate compromised by the fact that she has some regular grunting with her inspirations and expirations, but is regular, not currently in atrial fibrillation. She has a slight diastolic murmur. LUNGS: Clear without significant rales. ABDOMEN: Soft and nontender. EXTREMITIES: No edema. LABORATORY DATA: White count 10.0, hemoglobin 10.6, and platelets 230. Sodium 150, potassium 4.0, chloride 113, BUN 41, creatinine is 1.83, and glucose 223 to 354. IMPRESSION AND PLAN: 1. Sepsis, likely secondary to influenza and pneumonia. Blood pressure appears to have improved and stabilized. 2. Pneumonia. She is on vancomycin and Zosyn for healthcare-acquired pneumonia. Continue supplemental oxygen support. 3. Influenza A confirmed at outside facility. Continue with the full course of the Tamiflu. 4. Atrial fibrillation with RVR, resolved. She is currently still on a Cardizem drip. We will continue that for time, but will likely be able to discontinue that and not start anything additional. Furthermore, I do not believe she will need long-term anticoagulation given that this was transient in the setting of sepsis. 5. Diabetes mellitus. We will need to increase her sliding scale as blood sugars continue to run high. 6. Chronic diastolic heart failure, well compensated. 7. Hypertension, well controlled. 8. Hjfqa-qk-dimbmkr kidney disease. Her creatinine has significantly improved from 2.67 to 1.83, although still above her baseline of around 1.1. We will continue with hydration. 9. Hypernatremia. Dr. Youssef has changed the patient's fluids to half-normal saline. We will continue to monitor. Job ID: [id number]
--- NOTE | 2018-08-19 17:08 | EKG ---
Test Reason : Blood Pressure : / mmHG Vent. Rate : 135 BPM Atrial Rate : 074 BPM P-R Int : 000 ms QRS Dur : 126 ms QT Int : 352 ms P-R-T Axes : 000 -43 017 degrees QTc Int : 528 ms Atrial fibrillation with rapid ventricular response with premature ventricular or aberrantly conducte d complexes Left axis deviation Right bundle branch block Abnormal ECG When compared with ECG of 28-FEB-2017 16:28, Atrial fibrillation has replaced Sinus rhythm Right bundle branch block is now Present Confirmed by Nereyda KWON ([id number]) on 08/19/2018 5:08:05 PM Referred By: ANASTACIO Confirmed By:Nereyda KWON
[2018-08-19] MEDS ORDERED: Vancomycin HCl 750 MG in Sodium Chloride 0.9% 250 ML 250 ML IVPB SCH (18:00)
[2018-08-19] MEDS: Atorvastatin Calcium 40 MG TAB PO SCH (20:27)
[2018-08-19] MEDS: Lorazepam 0.5 MG TAB PO SCH (20:27)
[2018-08-19] MEDS: Primidone 50 MG TAB PO SCH (20:28)
[2018-08-19 20:48] LABS: Vancomycin, Random 11.2 ug/mL (See Comment)
[2018-08-19] MEDS ORDERED: Vancomycin HCl 500 MG in Sodium Chloride 0.9% 100 ML IVPB SCH (21:00)
[2018-08-19] MEDS: Vancomycin HCl 500 MG in Sodium Chloride 0.9% 100 ML IVPB SCH (22:07)
[2018-08-20 05:29] LABS: Anion Gap 16 mmol/L (10-20); BUN (Urea Nitrogen) 26 mg/dL (9.8-20.1); Calc. Creatinine Clearance 35 mL/min (70-130); Calcium 8.9 mg/dL (7.8-10.44); Carbon Dioxide 24 mmol/L (23-31); Chloride 115 mmol/L (98-107); Estimated GFR-MDRD 35; Glucose 209 mg/dL (83-110); Potassium 3.7 mmol/L (3.5-5.1); Sodium 151 mmol/L (136-145)
[2018-08-20] MEDS: Piperacillin/Tazobactam 2.25 GM in Sodium Chloride 0.9% 100 ML IVPB SCH ×3 (05:38→17:26)
[2018-08-20] MEDS: Sodium Chloride 0.45% 1,000 ML IV SCH (05:38)
[2018-08-20] MEDS: HumaLOG 300 UNITS/3 ML VIAL SC PRN ×3 (05:42→17:26)
[2018-08-20] MEDS: Aspirin 81 mg Enteric Coated Tablet PO SCH (09:05)
[2018-08-20] MEDS: Dextrose 5% in Water 1,000 ML IV SCH ×2 (09:05→22:31)
[2018-08-20] MEDS: Glimepiride 1 MG TAB PO SCH ×2 (09:06→20:36)
[2018-08-20] MEDS: Gabapentin 300 MG CAP PO SCH ×3 (09:06→20:36)
[2018-08-20] MEDS: Enoxaparin Sodium 30 MG/0.3 ML SYRINGE SC SCH (09:06)
[2018-08-20] MEDS: Clopidogrel Bisulfate 75 MG TAB PO SCH (09:06)
[2018-08-20] MEDS: DULoxetine 30 MG CAP PO SCH (09:06)
[2018-08-20] MEDS: Multivitamin W/ Minerals 1 TAB PO SCH (09:07)
[2018-08-20] MEDS: Oseltamivir 6 MG/ML ORAL SUSP PO SCH ×2 (09:07→20:36)
[2018-08-20] MEDS: Diltiazem HCl 125 MG, Admixture Fee 1 EACH in Sodium Chloride 0.9% 100 ML IVPB SCH ×2 (09:12→22:29)
--- NOTE | 2018-08-20 09:46 | PDOC.PN ---
- Subjective Encounter Start Date: 08/20/18 Encounter Start Time: 11:30 Subjective: Patient without complaint. No oriented. No chest pain. No SOB. - Objective Resuscitation Status - Order Detail: 08/19/18 22:16 Resuscitation Status Routine Resuscitation Status: DNAR: NO Resuscitation Discussed with: Patient's son ANA Reviewed: Yes Vital Signs & Weight: Vital Signs (12 hours) Temp Pulse Resp Pulse Ox 08/20/18 08:00 98.3 F 08/20/18 07:01 85 19 08/20/18 04:00 99.9 F H 08/20/18 02:13 98.4 F 08/20/18 00:08 74 18 98 08/20/18 00:00 100.3 F H Weight Admit Weight 170 lb Weight 157 lb 7 oz Most Recent Monitor Data Heart Rate from ECG 96 NIBP 126/60 NIBP BP-Mean 82 Respiration from ECG 14 SpO2 93 I&O: 08/19/18 08/20/18 08/21/18 06:59 06:59 06:59 Intake Total 2240 3000 Output Total 1725 2100 Balance 515 900 Result Diagrams: 08/19/18 04:00 08/20/18 03:50 Additional Labs: Accuchecks 08/19/18 12:06 POC Glucose 354 H Phys Exam - Physical Examination Constitutional: NAD HEENT: moist MMs Respiratory: no wheezing, no rhonchi few rales on right Cardiovascular: RRR, no significant murmur Gastrointestinal: soft, positive bowel sounds Neurological: non-focal, moves all 4 limbs Psychiatric: normal affect Dx/Plan (1) Sepsis Code(s): A41.9 - SEPSIS, UNSPECIFIED ORGANISM Status: Resolved (2) Right middle lobe pneumonia Code(s): J18.1 - LOBAR PNEUMONIA, UNSPECIFIED ORGANISM Status: Acute Comment : on broad spectrum antibiotics, Zosyn and Vancomycin, abx started 08/17/2018 (3) Influenza A Code(s): J10.1 - FLU DUE TO OTH IDENT INFLUENZA VIRUS W OTH RESP MANIFEST Status: Acute Comment: on Tamiflu (4) DM type 2 (diabetes mellitus, type 2) Status: Chronic Qualifiers: Diabetes mellitus complication status: with unspecified complications (5) Atrial fibrillation with RVR Code(s): I48.91 - UNSPECIFIED ATRIAL FIBRILLATION Status: Resolved Comment: resolved with Diltiazem drip (6) Diastolic CHF, chronic Code(s): I50.32 - CHRONIC DIASTOLIC (CONGESTIVE) HEART FAILURE Status: Chronic (7) HTN (hypertension) Code(s): I10 - ESSENTIAL (PRIMARY) HYPERTENSION Status: Chronic Qualifiers: Hypertension type: essential hypertension Qualified Code(s): I10 - Essential (primary) hypertension Comment: Stable.. (8) Acute on chronic kidney failure Code(s): N17.9 - ACUTE KIDNEY FAILURE, UNSPECIFIED; N18.9 - CHRONIC KIDNEY DISEASE, UNSPECIFIED Status: Acute Qualifiers: Chronic kidney disease stage: stage 2 (mild) Comment: improving with fluids (9) Dementia Code(s): F03.90 - UNSPECIFIED DEMENTIA WITHOUT BEHAVIORAL DISTURBANCE Status: Chronic Qualifiers: Dementia type: Alzheimer's disease Dementia behavioral disturbance: without behavioral disturbance (10) Dyslipidemia Code(s): E78.5 - HYPERLIPIDEMIA, UNSPECIFIED Status: Chronic (11) H/O: CVA (cerebrovascular accident) Code(s): Z86.73 - PRSNL HX OF TIA (TIA), AND CEREB INFRC W/O RESID DEFICITS Status: Chronic Comment: 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 - Discharge Day Encounter end time: 11:40
--- NOTE | 2018-08-20 09:47 | PRG ---
DATE OF SERVICE: 08/20/2018 SUBJECTIVE: She is awake, does not appear to be in any distress. She is currently on a Cardizem drip at 10 mg/hour. OBJECTIVE: VITAL SIGNS: Temperature is 99.9, pulse 86, blood pressure 143/75, O2 saturation 95%. HEENT: Unremarkable. NECK: No adenopathy or JVD. LUNGS: Clear anteriorly. CARDIAC: S1, S2. Irregularly irregular. ABDOMEN: Soft. EXTREMITIES: No edema. LABORATORY DATA: Sodium 151, potassium 3.7, chloride 115, CO2 of 24, BUN 26, creatinine 1.4, glucose 209. ASSESSMENT: 1. Influenza. 2. Atrial fibrillation with rapid ventricular response. 3. Hypernatremia.j. PLAN: Probably needs to be transitioned to D5W since her sodium remains high. Continue Tamiflu. Continue management of atrial fibrillation. Job ID: [id number]
[2018-08-20] MEDS: Acetaminophen 325 MG TAB PO PRN (15:31)
[2018-08-20] MEDS: Atorvastatin Calcium 40 MG TAB PO SCH (20:36)
[2018-08-20] MEDS: Primidone 50 MG TAB PO SCH (20:36)
[2018-08-20] MEDS: Lorazepam 0.5 MG TAB PO SCH (20:37)
[2018-08-20 21:44] LABS: Vancomycin, Trough 9.5 ug/mL
[2018-08-20] MEDS: Vancomycin HCl 500 MG in Sodium Chloride 0.9% 100 ML IVPB SCH (22:29)
[2018-08-21] MEDS: Piperacillin/Tazobactam 2.25 GM in Sodium Chloride 0.9% 100 ML IVPB SCH ×4 (00:28→17:23)
[2018-08-21 05:14] LABS: Anion Gap 14 mmol/L (10-20); BUN (Urea Nitrogen) 18 mg/dL (9.8-20.1); Calc. Creatinine Clearance 36 mL/min (70-130); Calcium 8.6 mg/dL (7.8-10.44); Carbon Dioxide 25 mmol/L (23-31); Chloride 108 mmol/L (98-107); Estimated GFR-MDRD 38; Glucose 282 mg/dL (83-110); Potassium 3.6 mmol/L (3.5-5.1); Sodium 143 mmol/L (136-145)
[2018-08-21] MEDS: HumaLOG 300 UNITS/3 ML VIAL SC PRN ×3 (06:18→15:47)
--- NOTE | 2018-08-21 08:39 | PDOC.PN ---
- Subjective Encounter Start Date: 08/21/18 Encounter Start Time: 09:20 Subjective: Patient feeling a bit better. Still on 2L NC O2. No chest pain. No SOB. - Objective Resuscitation Status - Order Detail: 08/19/18 22:16 Resuscitation Status Routine Resuscitation Status: DNAR: NO Resuscitation Discussed with: Patient's son ANA Reviewed: Yes Vital Signs & Weight: Vital Signs (12 hours) Temp Pulse Resp Pulse Ox 08/21/18 08:20 98 08/21/18 08:19 88 23 H 98 08/21/18 07:52 99.0 F 08/21/18 03:50 99.0 F 08/20/18 23:56 99.1 F 08/20/18 23:55 75 18 97 Weight Admit Weight 170 lb Weight 177 lb 5 oz Most Recent Monitor Data Heart Rate from ECG 81 NIBP 147/69 NIBP BP-Mean 95 Respiration from ECG 23 SpO2 96 I&O: 08/20/18 08/21/18 08/22/18 06:59 06:59 06:59 Intake Total 3000 3607 Output Total 2100 1800 Balance 900 1807 Result Diagrams: 08/19/18 04:00 08/21/18 04:19 Additional Labs: Accuchecks 08/21/18 08/20/18 08/20/18 05:32 20:49 16:38 POC Glucose 267 H 198 H 261 H 08/20/18 10:28 POC Glucose 374 H Phys Exam - Physical Examination Constitutional: NAD HEENT: moist MMs Respiratory: no wheezing, no rales scattered rhonchi Cardiovascular: RRR Gastrointestinal: soft, positive bowel sounds Neurological: non-focal, moves all 4 limbs Psychiatric: normal affect Deviation from normal: oriented to person, thinks in a different hospital, can' t give year Dx/Plan (1) Sepsis Code(s): A41.9 - SEPSIS, UNSPECIFIED ORGANISM Status: Resolved (2) Right middle lobe pneumonia Code(s): J18.1 - LOBAR PNEUMONIA, UNSPECIFIED ORGANISM Status: Acute Comment : on broad spectrum antibiotics, Zosyn and Vancomycin, abx started 08/17/2018 (3) Influenza A Code(s): J10.1 - FLU DUE TO OTH IDENT INFLUENZA VIRUS W OTH RESP MANIFEST Status: Acute Comment: on Tamiflu (4) DM type 2 (diabetes mellitus, type 2) Status: Chronic Qualifiers: Diabetes mellitus complication status: with unspecified complications (5) Atrial fibrillation with RVR Code(s): I48.91 - UNSPECIFIED ATRIAL FIBRILLATION Status: Resolved Comment: resolved with Diltiazem drip (6) Diastolic CHF, chronic Code(s): I50.32 - CHRONIC DIASTOLIC (CONGESTIVE) HEART FAILURE Status: Chronic (7) HTN (hypertension) Code(s): I10 - ESSENTIAL (PRIMARY) HYPERTENSION Status: Chronic Qualifiers: Hypertension type: essential hypertension Qualified Code(s): I10 - Essential (primary) hypertension Comment: Stable.. (8) Acute on chronic kidney failure Code(s): N17.9 - ACUTE KIDNEY FAILURE, UNSPECIFIED; N18.9 - CHRONIC KIDNEY DISEASE, UNSPECIFIED Status: Acute Qualifiers: Chronic kidney disease stage: stage 2 (mild) Comment: improving with fluids (9) Dementia Code(s): F03.90 - UNSPECIFIED DEMENTIA WITHOUT BEHAVIORAL DISTURBANCE Status: Chronic Qualifiers: Dementia type: Alzheimer's disease Dementia behavioral disturbance: without behavioral disturbance (10) Dyslipidemia Code(s): E78.5 - HYPERLIPIDEMIA, UNSPECIFIED Status: Chronic (11) H/O: CVA (cerebrovascular accident) Code(s): Z86.73 - PRSNL HX OF TIA (TIA), AND CEREB INFRC W/O RESID DEFICITS Status: Chronic Comment: 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 - Discharge Day Encounter end time: 09:30
--- NOTE | 2018-08-21 09:05 | PRG ---
DATE OF SERVICE: 08/21/2018 SUBJECTIVE: The patient is doing well, requesting water. OBJECTIVE: VITAL SIGNS: Temperature 99, pulse 81, blood pressure 147/69, and O2 saturation 96%. HEENT: Unremarkable. NECK: No JVD. CHEST: Clear to auscultation. CARDIAC: S1-S2 regular. ABDOMEN: Soft. EXTREMITIES: No edema. LABORATORY DATA: Sodium 136, potassium 3.6, chloride 108, CO2 25, BUN 18, creatinine 1.3, glucose 282. ASSESSMENT: 1. Influenza. 2. Atrial fibrillation with controlled rate. PLAN: At this point, I think she can transfer to the floor. There are no acute pulmonary concerns. Since she is not grown out staph from her cultures, I would recommend stopping the vancomycin. Job ID: [id number]
[2018-08-21] MEDS ORDERED: Vancomycin HCl 750 MG in Sodium Chloride 0.9% 250 ML 250 ML IVPB SCH (10:00)
[2018-08-21] MEDS: DULoxetine 30 MG CAP PO SCH (10:00)
[2018-08-21] MEDS: Clopidogrel Bisulfate 75 MG TAB PO SCH (10:00)
[2018-08-21] MEDS: Enoxaparin Sodium 30 MG/0.3 ML SYRINGE SC SCH (10:00)
[2018-08-21] MEDS: Gabapentin 300 MG CAP PO SCH ×3 (10:00→21:01)
[2018-08-21] MEDS: Aspirin 81 mg Enteric Coated Tablet PO SCH (10:00)
[2018-08-21] MEDS: Multivitamin W/ Minerals 1 TAB PO SCH (10:01)
[2018-08-21] MEDS: Oseltamivir 6 MG/ML ORAL SUSP PO SCH ×2 (10:01→21:04)
[2018-08-21] MEDS: Glimepiride 1 MG TAB PO SCH ×2 (10:01→21:03)
[2018-08-21] MEDS: Diltiazem HCl 125 MG, Admixture Fee 1 EACH in Sodium Chloride 0.9% 100 ML IVPB SCH (11:10)
[2018-08-21] MEDS: Dextrose 5% in Water 1,000 ML IV SCH (17:23)
[2018-08-21] MEDS: Primidone 50 MG TAB PO SCH (21:00)
[2018-08-21] MEDS: Atorvastatin Calcium 40 MG TAB PO SCH (21:00)
[2018-08-21] MEDS: Lorazepam 0.5 MG TAB PO SCH (21:00)
[2018-08-22] MEDS: Piperacillin/Tazobactam 2.25 GM in Sodium Chloride 0.9% 100 ML IVPB SCH ×4 (01:01→17:05)
[2018-08-22] MEDS: Diltiazem HCl 125 MG, Admixture Fee 1 EACH in Sodium Chloride 0.9% 100 ML IVPB SCH (01:03)
[2018-08-22] MEDS: Dextrose 5% in Water 1,000 ML IV SCH (05:04)
[2018-08-22 08:27] LABS: Calcium 8.4 mg/dL (7.8-10.44); Chloride 103 mmol/L (98-107); Potassium 3.6 mmol/L (3.5-5.1); Sodium 136 mmol/L (136-145)
[2018-08-22 08:28] LABS: Glucose 230 mg/dL (83-110)
[2018-08-22 08:29] LABS: Carbon Dioxide 24 mmol/L (23-31)
[2018-08-22 08:30] LABS: Anion Gap 13 mmol/L (10-20)
[2018-08-22 08:31] LABS: Calc. Creatinine Clearance 50 mL/min (70-130); Estimated GFR-MDRD 47
[2018-08-22 08:32] LABS: BUN (Urea Nitrogen) 11 mg/dL (9.8-20.1)
--- NOTE | 2018-08-22 10:18 | PDOC.PN ---
- Subjective Encounter Start Date: 08/22/18 Encounter Start Time: 08:00 -: old records requested/rev Patient seen and examined. No new complaints. No overnight events pt has cough, on cardizem drip - Objective Resuscitation Status - Order Detail: 08/19/18 22:16 Resuscitation Status Routine Resuscitation Status: DNAR: NO Resuscitation Discussed with: Patient's son ANA Reviewed: Yes Vital Signs & Weight: Vital Signs (12 hours) Temp Pulse Resp BP BP Pulse Ox 08/22/18 09:35 98 08/22/18 09:34 81 16 08/22/18 04:00 98.0 F 81 18 131/61 131/61 95 08/22/18 00:50 89 18 90 L Weight Admit Weight 170 lb Weight 185 lb Most Recent Monitor Data Heart Rate from ECG 90 NIBP 168/74 NIBP BP-Mean 105 Respiration from ECG 20 SpO2 96 I&O: 08/21/18 08/22/18 08/23/18 06:59 06:59 06:59 Intake Total 3607 3440 Output Total 1800 1850 Balance 1807 1590 Result Diagrams: 08/19/18 04:00 08/22/18 07:44 Additional Labs: Accuchecks 08/22/18 08/22/18 08/21/18 07:55 06:05 20:31 POC Glucose 228 H 242 H 218 H 08/21/18 08/21/18 15:43 10:48 POC Glucose 322 H 279 H EKG Reviewed by me: Yes Phys Exam - Physical Examination Constitutional: NAD HEENT: PERRLA, moist MMs, sclera anicteric Neck: no JVD, supple Respiratory: no wheezing, no rhonchi coarse sound+ Cardiovascular: no significant murmur, irregular Gastrointestinal: soft, non-tender, no distention, positive bowel sounds Musculoskeletal: no edema, pulses present Neurological: non-focal Lymphatic: no nodes Psychiatric: normal affect Skin: no rash, normal turgor Dx/Plan (1) Acute on chronic kidney failure Code(s): N17.9 - ACUTE KIDNEY FAILURE, UNSPECIFIED; N18.9 - CHRONIC KIDNEY DISEASE, UNSPECIFIED Status: Acute Qualifiers: Chronic kidney disease stage: stage 2 (mild) Comment: baseline CKD-3 (2) Influenza A Code(s): J10.1 - FLU DUE TO OTH IDENT INFLUENZA VIRUS W OTH RESP MANIFEST Status: Acute Comment: on Tamiflu (3) DM type 2 (diabetes mellitus, type 2) Status: Chronic Qualifiers: Diabetes mellitus complication status: with unspecified complications (4) Dementia Code(s): F03.90 - UNSPECIFIED DEMENTIA WITHOUT BEHAVIORAL DISTURBANCE Status: Chronic Qualifiers: Dementia type: Alzheimer's disease Dementia behavioral disturbance: without behavioral disturbance (5) Diastolic CHF, chronic Code(s): I50.32 - CHRONIC DIASTOLIC (CONGESTIVE) HEART FAILURE Status: Chronic Comment: stage C (6) Dyslipidemia Code(s): E78.5 - HYPERLIPIDEMIA, UNSPECIFIED Status: Chronic (7) H/O: CVA (cerebrovascular accident) Code(s): Z86.73 - PRSNL HX OF TIA (TIA), AND CEREB INFRC W/O RESID DEFICITS Status: Chronic Comment: 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 (9) Atrial fibrillation with RVR Code(s): I48.91 - UNSPECIFIED ATRIAL FIBRILLATION Status: Resolved Comment: resolved with Diltiazem drip (10) Hypernatremia Code(s): E87.0 - HYPEROSMOLALITY AND HYPERNATREMIA Status: Resolved Comment : fluids adjusted (11) Sepsis Code(s): A41.9 - SEPSIS, UNSPECIFIED ORGANISM Status: Resolved - Plan cont current plan of care, continue antibiotics * wean off cardizem drip * add po cardizem * continue zosyn * continue tamiflu * medication reviewed as below * symptomatic treatment. Review of Systems - Review of Systems Eyes: negative: Pain, Vision Change, Conjunctivae Inflammation, Eyelid Inflammation, Redness, Other ENT: negative: Ear Pain, Ear Discharge, Nose Pain, Nose Discharge, Nose Congestion, Mouth Pain, Mouth Swelling, Throat Pain, Throat Swelling, Other Respiratory: Cough, Sputum. negative: Dry, Shortness of Breath, Hemoptysis, SOB with Excertion, Pleuritic Pain, Wheezing Cardiovascular: negative: chest pain, palpitations, orthopnea, paroxysmal nocturnal dyspnea, edema, light headedness, other Gastrointestinal: negative: Nausea, Vomiting, Abdominal Pain, Diarrhea, Constipation, Melena, Hematochezia, Other Genitourinary: negative: Dysuria, Frequency, Incontinence, Hematuria, Retention , Other Musculoskeletal: negative: Neck Pain, Shoulder Pain, Arm Pain, Back Pain, Hand Pain, Leg Pain, Foot Pain, Other Skin: negative: Rash, Lesions, Carlin, Bruising, Other - Medications/Allergies Allergies/Adverse Reactions: Allergies Allergy/AdvReac Type Severity Reaction Status Date / Time ciprofloxacin [From Cipro] Allergy Verified 08/18/18 01:07 Medications: Current Medications Acetaminophen (Tylenol) 650 mg PO Q4H PRN PRN Reason: Headache/Fever/Mild Pain (1-3) Last Admin: 08/20/18 15:31 Dose: 650 mg Albuterol/Ipratropium (Duoneb) 3 ml NEB [id number] [facility] Last Admin: 08/22/18 09:34 Dose: 3 ml Aspirin (Ecotrin) 81 mg PO DAILY [facility] Last Admin: 08/21/18 10:00 Dose: 81 mg Atorvastatin Calcium (Lipitor) 80 mg PO HS [facility] Last Admin: 08/21/18 21:00 Dose: 80 mg Benzonatate (Tessalon) 100 mg PO TID PRN PRN Reason: Cough Bisacodyl (Dulcolax) 10 mg PO DAILYPRN PRN PRN Reason: Constipation Bisacodyl (Dulcolax) 5 mg PO DAILY PRN PRN Reason: Constipation Clopidogrel Bisulfate (Plavix) 75 mg PO DAILY [facility] Last Admin: 08/21/18 10:00 Dose: 75 mg Dextrose/Water (Dextrose 50%) 25 gm SLOW IVP PRN PRN PRN Reason: Hypoglycemia Diltiazem HCl (Cardizem) 30 mg PO [facility] Duloxetine HCl (Cymbalta) 30 mg PO DAILY [facility] Last Admin: 08/21/18 10:00 Dose: 30 mg Enoxaparin Sodium (Lovenox) 30 mg SC 0900 [facility] Last Admin: 08/21/18 10:00 Dose: 30 mg Gabapentin (Neurontin) 600 mg PO TID [facility] Last Admin: 08/21/18 21:01 Dose: 600 mg Glimepiride (Amaryl) 1 mg PO BID [facility] Last Admin: 08/21/18 21:03 Dose: 1 mg Glucagon (Glucagon) 1 mg IM PRN PRN PRN Reason: Hypoglycemia Hydralazine HCl (Apresoline) 10 mg SLOW IVP Q4H PRN PRN Reason: SBP > 180 and HR < 70 Piperacillin Sod/Tazobactam (Sod 2.25 gm/ Sodium Chloride) 100 mls @ 200 mls/ hr IVPB Q6HR [facility] Last Admin: 08/22/18 05:48 Dose: 100 mls Dextrose/Water (D5w) 1,000 mls @ 0 mls/hr IV .Q0M PRN PRN Reason: Hypoglycemia Diltiazem HCl 125 mg/Miscellaneous Medication 1 each/ Sodium Chloride 125 mls @ 0 mls/hr IVPB INF [facility]; Protocol Last Admin: 08/22/18 01:03 Dose: 125 mls Insulin Human Lispro (Humalog) 0 units SC .MODERATE SLIDING SC PRN PRN Reason: Moderate Correctional Scale Last Admin: 08/21/18 15:47 Dose: 8 unit Insulin Human Lispro (Humalog) 0 units SC .BEDTIME SLIDING SC PRN PRN Reason: Bedtime Correctional Scale Last Admin: 08/18/18 20:50 Dose: 4 unit Iron/Minerals/Multivitamins (Theragran M) 1 tab PO DAILY [facility] Last Admin: 08/21/18 10:01 Dose: 1 tab Loratadine (Claritin) 10 mg PO DAILYPRN PRN PRN Reason: ALLERGY Lorazepam (Ativan) 0.5 mg PO [facility] Last Admin: 08/21/18 21:00 Dose: 0.5 mg Ondansetron HCl (Zofran) 4 mg IVP Q6H PRN PRN Reason: Nausea/Vomiting Oseltamivir Phosphate (Tamiflu) 75 mg PO BID [facility] Last Admin: 08/21/18 21:04 Dose: 75 mg Pantoprazole Sodium (Protonix) 40 mg PO DAILY [facility] Last Admin: 08/21/18 10:00 Dose: 40 mg Patient Own Medication (Patient's Home Medication) 0 each SC Q7D [facility] Polyethylene Glycol (Miralax) 17 gm PO DAILY PRN PRN Reason: Constipation Primidone (Mysoline) 150 mg PO [facility] Last Admin: 08/21/18 21:00 Dose: 150 mg Sodium Chloride (Flush - Normal Saline) 10 ml IVF Q12HR [facility] Last Admin: 04/13/19 05:03 Dose: Not Given Sodium Chloride (Flush - Normal Saline) 10 ml IVF PRN PRN PRN Reason: Saline Flush
[2018-08-22] MEDS: DULoxetine 30 MG CAP PO SCH (11:28)
[2018-08-22] MEDS: Multivitamin W/ Minerals 1 TAB PO SCH (11:28)
[2018-08-22] MEDS: Enoxaparin Sodium 30 MG/0.3 ML SYRINGE SC SCH (11:28)
[2018-08-22] MEDS: Gabapentin 300 MG CAP PO SCH ×3 (11:28→21:02)
[2018-08-22] MEDS: Aspirin 81 mg Enteric Coated Tablet PO SCH (11:29)
[2018-08-22] MEDS: Clopidogrel Bisulfate 75 MG TAB PO SCH (11:29)
--- NOTE | 2018-08-22 12:54 | PRG ---
DATE OF SERVICE: 08/22/2018 SUBJECTIVE: This morning, she is doing quite well. She is eating her dinner without any problems. No coughing or wheezing. She wants to go home. OBJECTIVE: VITAL SIGNS: Her saturations are 98 on 2 L, respirations 16, temperature 99, and blood pressure 131/61. CHEST: Bilateral rhonchi and crackles. CARDIAC: Normal S1 and S2. No gallops. LABORATORY DATA: Lytes are normal. IMPRESSION: Status post flu pneumonia, atrial fibrillation, encephalopathy. The patient is improved. Continue PT supportive care, eventually placement. Job ID: [id number]
[2018-08-22] MEDS: Oseltamivir 6 MG/ML ORAL SUSP PO SCH (16:21)
[2018-08-22] MEDS: Glimepiride 1 MG TAB PO SCH ×2 (16:21→21:01)
[2018-08-22] MEDS ORDERED: Digoxin 0.5 MG/2 ML AMP SLOW IVP SCH (16:45)
[2018-08-22] MEDS: HumaLOG 300 UNITS/3 ML VIAL SC PRN ×2 (17:13→21:28)
[2018-08-22] MEDS: Atorvastatin Calcium 40 MG TAB PO SCH (21:01)
[2018-08-22] MEDS: Primidone 50 MG TAB PO SCH (21:02)
[2018-08-22] MEDS: Lorazepam 0.5 MG TAB PO SCH (21:02)
[2018-08-22] MEDS: Oseltamivir 75 MG CAP PO SCH (21:05)
[2018-08-23] MEDS: Piperacillin/Tazobactam 2.25 GM in Sodium Chloride 0.9% 100 ML IVPB SCH ×4 (00:35→18:23)
[2018-08-23 05:20] LABS: Anion Gap 13 mmol/L (10-20); BUN (Urea Nitrogen) 14 mg/dL (9.8-20.1); Calc. Creatinine Clearance 50 mL/min (70-130); Calcium 8.3 mg/dL (7.8-10.44); Carbon Dioxide 24 mmol/L (23-31); Chloride 99 mmol/L (98-107); Estimated GFR-MDRD 46; Glucose 248 mg/dL (83-110); Potassium 3.6 mmol/L (3.5-5.1); Sodium 132 mmol/L (136-145)
--- NOTE | 2018-08-23 08:58 | PDOC.PN ---
- Subjective Encounter Start Date: 08/23/18 Encounter Start Time: 08:20 Patient seen and examined. No overnight events, pt is resting - Objective Resuscitation Status - Order Detail: 08/19/18 22:16 Resuscitation Status Routine Resuscitation Status: DNAR: NO Resuscitation Discussed with: Patient's son ANA Reviewed: Yes Vital Signs & Weight: Vital Signs (12 hours) Temp Pulse Resp BP BP Pulse Ox 08/23/18 08:00 98.7 F 100 18 122/60 100 08/23/18 04:00 98.3 F 77 20 142/64 H 96 08/23/18 00:26 68 22 H 93 L Weight Admit Weight 170 lb Weight 194 lb Most Recent Monitor Data Heart Rate from ECG 90 NIBP 168/74 NIBP BP-Mean 105 Respiration from ECG 20 SpO2 96 I&O: 08/22/18 08/23/18 08/24/18 06:59 06:59 06:59 Intake Total 3440 1200 Output Total 1850 1400 Balance 1590 -200 Result Diagrams: 08/19/18 04:00 08/23/18 03:55 Additional Labs: Accuchecks 08/23/18 08/22/18 08/22/18 05:19 20:57 16:48 POC Glucose 224 H 318 H 339 H 08/22/18 11:13 POC Glucose 303 H EKG Reviewed by me: Yes (afib) Phys Exam - Physical Examination Constitutional: NAD HEENT: PERRLA, moist MMs, sclera anicteric Neck: no JVD, supple Respiratory: no wheezing, no rhonchi coarse sound Cardiovascular: no significant murmur, irregular Gastrointestinal: soft, non-tender, no distention, positive bowel sounds Musculoskeletal: no edema, pulses present Neurological: non-focal, normal sensation Lymphatic: no nodes Psychiatric: normal affect Skin: no rash, normal turgor Dx/Plan (1) Acute on chronic kidney failure Code(s): N17.9 - ACUTE KIDNEY FAILURE, UNSPECIFIED; N18.9 - CHRONIC KIDNEY DISEASE, UNSPECIFIED Status: Acute Qualifiers: Chronic kidney disease stage: stage 2 (mild) Comment: baseline CKD-3 (2) Influenza A Code(s): J10.1 - FLU DUE TO OTH IDENT INFLUENZA VIRUS W OTH RESP MANIFEST Status: Acute Comment: on Tamiflu (3) DM type 2 (diabetes mellitus, type 2) Status: Chronic Qualifiers: Diabetes mellitus complication status: with unspecified complications (4) Dementia Code(s): F03.90 - UNSPECIFIED DEMENTIA WITHOUT BEHAVIORAL DISTURBANCE Status: Chronic Qualifiers: Dementia type: Alzheimer's disease Dementia behavioral disturbance: without behavioral disturbance (5) Diastolic CHF, chronic Code(s): I50.32 - CHRONIC DIASTOLIC (CONGESTIVE) HEART FAILURE Status: Chronic Comment: stage C (6) Dyslipidemia Code(s): E78.5 - HYPERLIPIDEMIA, UNSPECIFIED Status: Chronic (7) H/O: CVA (cerebrovascular accident) Code(s): Z86.73 - PRSNL HX OF TIA (TIA), AND CEREB INFRC W/O RESID DEFICITS Status: Chronic Comment: 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 (9) Atrial fibrillation with RVR Code(s): I48.91 - UNSPECIFIED ATRIAL FIBRILLATION Status: Resolved Comment: resolved with Diltiazem drip (10) Hypernatremia Code(s): E87.0 - HYPEROSMOLALITY AND HYPERNATREMIA Status: Resolved Comment : fluids adjusted (11) Sepsis Code(s): A41.9 - SEPSIS, UNSPECIFIED ORGANISM Status: Resolved - Plan cont current plan of care, continue antibiotics * medication reviewed as below * symptomatic treatment * continue cardizem drip * continue current antibiotics * she is not stable for discharge yet. Review of Systems - Review of Systems Other: not reliable with pt due to her level of cognitive status - Medications/Allergies Allergies/Adverse Reactions: Allergies Allergy/AdvReac Type Severity Reaction Status Date / Time ciprofloxacin [From Cipro] Allergy Verified 08/18/18 01:07 Medications: Current Medications Acetaminophen (Tylenol) 650 mg PO Q4H PRN PRN Reason: Headache/Fever/Mild Pain (1-3) Last Admin: 08/20/18 15:31 Dose: 650 mg Albuterol/Ipratropium (Duoneb) 3 ml NEB [id number] [facility] Last Admin: 08/23/18 00:26 Dose: 3 ml Ascorbic Acid (Vitamin C) 500 mg PO BID [facility] Aspirin (Ecotrin) 81 mg PO DAILY [facility] Last Admin: 08/22/18 11:29 Dose: 81 mg Atorvastatin Calcium (Lipitor) 80 mg PO HS [facility] Last Admin: 08/22/18 21:01 Dose: 80 mg Benzonatate (Tessalon) 100 mg PO TID PRN PRN Reason: Cough Bisacodyl (Dulcolax) 10 mg PO DAILYPRN PRN PRN Reason: Constipation Bisacodyl (Dulcolax) 5 mg PO DAILY PRN PRN Reason: Constipation Bumetanide (Bumex) 1 mg PO DAILY [facility] Clopidogrel Bisulfate (Plavix) 75 mg PO DAILY [facility] Last Admin: 08/22/18 11:29 Dose: 75 mg Dextrose/Water (Dextrose 50%) 25 gm SLOW IVP PRN PRN PRN Reason: Hypoglycemia Diltiazem HCl (Cardizem) 30 mg PO ACHS [facility] Last Admin: 08/22/18 21:02 Dose: 30 mg Donepezil HCl (Aricept) 5 mg PO HS [facility] Duloxetine HCl (Cymbalta) 30 mg PO DAILY [facility] Last Admin: 08/22/18 11:28 Dose: 30 mg Enoxaparin Sodium (Lovenox) 30 mg SC 0900 [facility] Last Admin: 08/22/18 11:28 Dose: 30 mg Gabapentin (Neurontin) 600 mg PO TID [facility] Last Admin: 08/22/18 21:02 Dose: 600 mg Glimepiride (Amaryl) 1 mg PO BID [facility] Last Admin: 08/22/18 21:01 Dose: 1 mg Glucagon (Glucagon) 1 mg IM PRN PRN PRN Reason: Hypoglycemia Hydralazine HCl (Apresoline) 10 mg SLOW IVP Q4H PRN PRN Reason: SBP > 180 and HR < 70 Piperacillin Sod/Tazobactam (Sod 2.25 gm/ Sodium Chloride) 100 mls @ 200 mls/ hr IVPB Q6HR [facility] Last Admin: 08/23/18 07:50 Dose: Not Given Dextrose/Water (D5w) 1,000 mls @ 0 mls/hr IV .Q0M PRN PRN Reason: Hypoglycemia Last Admin: 08/22/18 21:09 Dose: 1,000 mls Diltiazem HCl 125 mg/Miscellaneous Medication 1 each/ Sodium Chloride 125 mls @ 0 mls/hr IVPB INF [facility]; Protocol Last Admin: 08/22/18 01:03 Dose: 125 mls Insulin Human Lispro (Humalog) 0 units SC .MODERATE SLIDING SC PRN PRN Reason: Moderate Correctional Scale Last Admin: 08/22/18 17:13 Dose: 8 unit Insulin Human Lispro (Humalog) 0 units SC .BEDTIME SLIDING SC PRN PRN Reason: Bedtime Correctional Scale Last Admin: 08/22/18 21:28 Dose: 4 unit Insulin Human Regular (Humulin R) 5 units SC [facility] Iron/Minerals/Multivitamins (Theragran M) 1 tab PO DAILY [facility] Last Admin: 08/22/18 11:28 Dose: 1 tab Loratadine (Claritin) 10 mg PO DAILYPRN PRN PRN Reason: ALLERGY Lorazepam (Ativan) 0.5 mg PO HS [facility] Last Admin: 08/22/18 21:02 Dose: 0.5 mg Ondansetron HCl (Zofran) 4 mg IVP Q6H PRN PRN Reason: Nausea/Vomiting Oseltamivir Phosphate (Tamiflu) 75 mg PO BID [facility] Stop: 08/23/18 21:01 Last Admin: 08/22/18 21:05 Dose: 75 mg Pantoprazole Sodium (Protonix) 40 mg PO DAILY [facility] Last Admin: 08/22/18 11:29 Dose: 40 mg Patient Own Medication (Patient's Home Medication) 0 each SC Q7D [facility] Polyethylene Glycol (Miralax) 17 gm PO DAILY PRN PRN Reason: Constipation Primidone (Mysoline) 150 mg PO HS [facility] Last Admin: 08/22/18 21:02 Dose: 150 mg Sodium Chloride (Flush - Normal Saline) 10 ml IVF Q12HR [facility] Last Admin: 08/22/18 21:03 Dose: 10 ml Sodium Chloride (Flush - Normal Saline) 10 ml IVF PRN PRN PRN Reason: Saline Flush
[2018-08-23] MEDS: HumaLOG 300 UNITS/3 ML VIAL SC PRN ×3 (09:06→18:19)
[2018-08-23] MEDS: Insulin Regular 300 UNITS/3 ML VIAL SC SCH ×4 (09:11→22:13)
[2018-08-23] MEDS: Gabapentin 300 MG CAP PO SCH ×3 (09:24→20:32)
[2018-08-23] MEDS: Clopidogrel Bisulfate 75 MG TAB PO SCH (09:25)
[2018-08-23] MEDS: Ascorbic Acid 500 mg Chewable Tablet PO SCH ×2 (09:25→20:31)
[2018-08-23] MEDS: Bumetanide 1 MG TAB PO SCH (09:25)
[2018-08-23] MEDS: Multivitamin W/ Minerals 1 TAB PO SCH (09:25)
[2018-08-23] MEDS: DULoxetine 30 MG CAP PO SCH (09:25)
[2018-08-23] MEDS: Glimepiride 1 MG TAB PO SCH ×2 (09:25→22:13)
[2018-08-23] MEDS: Aspirin 81 mg Enteric Coated Tablet PO SCH (09:25)
[2018-08-23] MEDS: Oseltamivir 75 MG CAP PO SCH (09:25)
[2018-08-23] MEDS: Enoxaparin Sodium 30 MG/0.3 ML SYRINGE SC SCH (09:26)
[2018-08-23] MEDS: Diltiazem HCl 125 MG, Admixture Fee 1 EACH in Sodium Chloride 0.9% 100 ML IVPB SCH (10:28)
--- NOTE | 2018-08-23 12:18 | PRG ---
DATE OF SERVICE: 08/23/2018 SUBJECTIVE: An 83-year-old female, remains encephalopathic. No distress. OBJECTIVE: VITAL SIGNS: Saturations are 100% on 2 L, respirations 18, temperature 98, blood pressure 120/63. CHEST: Decreased breath sounds. No wheezing. CARDIAC: Normal S1, S2 regular without gallops. ABDOMEN: Massive, soft. LABORATORY DATA: Sodium 132. ASSESSMENT: 1. Status post flu. 2. Atrial fibrillation. 3. Encephalopathy. PLAN: Switch over to oral antibiotics. Continue PT and supportive care. Eventually placement. Job ID: [id number]
[2018-08-23] MEDS: Primidone 50 MG TAB PO SCH (20:31)
[2018-08-23] MEDS: Atorvastatin Calcium 40 MG TAB PO SCH (20:31)
[2018-08-23] MEDS: Lorazepam 0.5 MG TAB PO SCH (20:32)
[2018-08-23] MEDS: Donepezil HCl 5 MG TAB PO SCH (20:39)
[2018-08-24 05:52] LABS: Anion Gap 11 mmol/L (10-20); BUN (Urea Nitrogen) 17 mg/dL (9.8-20.1); Calc. Creatinine Clearance 47 mL/min (70-130); Calcium 8.4 mg/dL (7.8-10.44); Carbon Dioxide 28 mmol/L (23-31); Chloride 103 mmol/L (98-107); Estimated GFR-MDRD 42; Glucose 183 mg/dL (83-110); Potassium 3.6 mmol/L (3.5-5.1); Sodium 138 mmol/L (136-145)
[2018-08-24] MEDS: Piperacillin/Tazobactam 2.25 GM in Sodium Chloride 0.9% 100 ML IVPB SCH ×5 (06:03→21:04)
[2018-08-24] MEDS ORDERED: Enoxaparin Sodium 40 MG/0.4 ML SYRINGE SC SCH (09:00)
[2018-08-24] MEDS: Glimepiride 1 MG TAB PO SCH ×2 (09:05→21:03)
[2018-08-24] MEDS: Bumetanide 1 MG TAB PO SCH (09:06)
[2018-08-24] MEDS: Gabapentin 300 MG CAP PO SCH ×3 (09:06→21:03)
[2018-08-24] MEDS: DULoxetine 30 MG CAP PO SCH (09:06)
[2018-08-24] MEDS: Multivitamin W/ Minerals 1 TAB PO SCH (09:06)
[2018-08-24] MEDS: Ascorbic Acid 500 mg Chewable Tablet PO SCH ×2 (09:06→21:02)
[2018-08-24] MEDS: Aspirin 81 mg Enteric Coated Tablet PO SCH (09:06)
[2018-08-24] MEDS: Insulin Regular 300 UNITS/3 ML VIAL SC SCH ×4 (09:07→21:05)
[2018-08-24] MEDS: Clopidogrel Bisulfate 75 MG TAB PO SCH (09:07)
[2018-08-24] MEDS: Enoxaparin Sodium 30 MG/0.3 ML SYRINGE SC SCH (09:08)
--- NOTE | 2018-08-24 10:39 | PRG ---
DATE OF SERVICE: 08/24/2018 SUBJECTIVE: The patient is doing better, had no acute complaints. OBJECTIVE: VITAL SIGNS: Temperature 97.9, pulse 128, blood pressure 125/60, O2 saturation 99% on 2 L. She remains on a Cardizem drip 10 mg an hour HEENT: Unremarkable. NECK: No JVD. CHEST: Clear. CARDIAC: S1, S2. Regular. ABDOMEN: Soft. EXTREMITIES: No edema. ASSESSMENT: 1. Influenza. 2. Atrial fibrillation with rapid ventricular response. PLAN: Her Tamiflu has been discontinued. I think the primary issue now is getting her off the Cardizem drip. Her pulmonary status is stable and pulmonary has no further recommendations at this time. Job ID: [id number]
--- NOTE | 2018-08-24 12:08 | PDOC.PN ---
- Subjective Encounter Start Date: 08/24/18 Encounter Start Time: 08:30 Patient seen and examined. No new complaints. No overnight events - Objective Resuscitation Status - Order Detail: 08/19/18 22:16 Resuscitation Status Routine Resuscitation Status: DNAR: NO Resuscitation Discussed with: Patient's son ANA Reviewed: Yes Vital Signs & Weight: Vital Signs (12 hours) Temp Pulse Resp BP BP Pulse Ox 08/24/18 08:00 97.9 F 128 H 16 125/60 98 08/24/18 06:57 77 20 97 08/24/18 04:00 99 F 88 20 115/67 95 08/24/18 00:49 84 22 H 94 L Weight Admit Weight 170 lb Weight 199 lb Most Recent Monitor Data Heart Rate from ECG 90 NIBP 168/74 NIBP BP-Mean 105 Respiration from ECG 20 SpO2 96 I&O: 08/23/18 08/24/18 08/25/18 06:59 06:59 06:59 Intake Total 1200 2040 Output Total 1400 2750 Balance -200 -710 Result Diagrams: 08/19/18 04:00 08/24/18 05:01 Additional Labs: Accuchecks 08/24/18 08/24/18 08/23/18 11:06 05:53 20:53 POC Glucose 401 H 188 H 273 H 08/23/18 17:32 POC Glucose 237 H EKG Reviewed by me: Yes Phys Exam - Physical Examination Constitutional: NAD HEENT: PERRLA, moist MMs, sclera anicteric Neck: no JVD, supple Respiratory: no wheezing, no rales, no rhonchi Cardiovascular: no significant murmur, irregular Gastrointestinal: soft, non-tender, no distention, positive bowel sounds Musculoskeletal: no edema, pulses present Neurological: non-focal, normal sensation Lymphatic: no nodes Psychiatric: normal affect, A&O x 3 Skin: no rash, normal turgor Dx/Plan (1) Acute on chronic kidney failure Code(s): N17.9 - ACUTE KIDNEY FAILURE, UNSPECIFIED; N18.9 - CHRONIC KIDNEY DISEASE, UNSPECIFIED Status: Acute Qualifiers: Chronic kidney disease stage: stage 2 (mild) Comment: baseline CKD-3 (2) Influenza A Code(s): J10.1 - FLU DUE TO OTH IDENT INFLUENZA VIRUS W OTH RESP MANIFEST Status: Acute Comment: on Tamiflu (3) DM type 2 (diabetes mellitus, type 2) Status: Chronic Qualifiers: Diabetes mellitus complication status: with unspecified complications (4) Dementia Code(s): F03.90 - UNSPECIFIED DEMENTIA WITHOUT BEHAVIORAL DISTURBANCE Status: Chronic Qualifiers: Dementia type: Alzheimer's disease Dementia behavioral disturbance: without behavioral disturbance (5) Diastolic CHF, chronic Code(s): I50.32 - CHRONIC DIASTOLIC (CONGESTIVE) HEART FAILURE Status: Chronic Comment: stage C (6) Dyslipidemia Code(s): E78.5 - HYPERLIPIDEMIA, UNSPECIFIED Status: Chronic (7) H/O: CVA (cerebrovascular accident) Code(s): Z86.73 - PRSNL HX OF TIA (TIA), AND CEREB INFRC W/O RESID DEFICITS Status: Chronic Comment: 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 (9) Atrial fibrillation with RVR Code(s): I48.91 - UNSPECIFIED ATRIAL FIBRILLATION Status: Resolved Comment: resolved with Diltiazem drip (10) Hypernatremia Code(s): E87.0 - HYPEROSMOLALITY AND HYPERNATREMIA Status: Resolved Comment : fluids adjusted (11) Sepsis Code(s): A41.9 - SEPSIS, UNSPECIFIED ORGANISM Status: Resolved - Plan cont current plan of care * medication reviewed as below * symptomatic treatment * still afib is not controlled * cardiology following * on cardizem drip. Review of Systems - Review of Systems Other: not reliable due to cognitive status - Medications/Allergies Allergies/Adverse Reactions: Allergies Allergy/AdvReac Type Severity Reaction Status Date / Time ciprofloxacin [From Cipro] Allergy Verified 08/18/18 01:07 Medications: Current Medications Acetaminophen (Tylenol) 650 mg PO Q4H PRN PRN Reason: Headache/Fever/Mild Pain (1-3) Last Admin: 08/20/18 15:31 Dose: 650 mg Albuterol/Ipratropium (Duoneb) 3 ml NEB [id number] [facility] Last Admin: 08/24/18 06:57 Dose: 3 ml Ascorbic Acid (Vitamin C) 500 mg PO BID [facility] Last Admin: 08/24/18 09:06 Dose: 500 mg Aspirin (Ecotrin) 81 mg PO DAILY [facility] Last Admin: 08/24/18 09:06 Dose: 81 mg Atorvastatin Calcium (Lipitor) 80 mg PO HS [facility] Last Admin: 08/23/18 20:31 Dose: 80 mg Benzonatate (Tessalon) 100 mg PO TID PRN PRN Reason: Cough Bisacodyl (Dulcolax) 10 mg PO DAILYPRN PRN PRN Reason: Constipation Bisacodyl (Dulcolax) 5 mg PO DAILY PRN PRN Reason: Constipation Bumetanide (Bumex) 1 mg PO DAILY [facility] Last Admin: 08/24/18 09:06 Dose: 1 mg Clopidogrel Bisulfate (Plavix) 75 mg PO DAILY [facility] Last Admin: 08/24/18 09:07 Dose: 75 mg Dextrose/Water (Dextrose 50%) 25 gm SLOW IVP PRN PRN PRN Reason: Hypoglycemia Diltiazem HCl (Cardizem) 30 mg PO ACHS [facility] Last Admin: 08/24/18 09:07 Dose: 30 mg Donepezil HCl (Aricept) 5 mg PO HS [facility] Last Admin: 08/23/18 20:39 Dose: 5 mg Duloxetine HCl (Cymbalta) 30 mg PO DAILY [facility] Last Admin: 08/24/18 09:06 Dose: 30 mg Enoxaparin Sodium (Lovenox) 30 mg SC 0900 [facility] Last Admin: 08/24/18 09:08 Dose: 30 mg Gabapentin (Neurontin) 600 mg PO TID [facility] Last Admin: 08/24/18 09:06 Dose: 600 mg Glimepiride (Amaryl) 1 mg PO BID [facility] Last Admin: 08/24/18 09:05 Dose: 1 mg Glucagon (Glucagon) 1 mg IM PRN PRN PRN Reason: Hypoglycemia Hydralazine HCl (Apresoline) 10 mg SLOW IVP Q4H PRN PRN Reason: SBP > 180 and HR < 70 Piperacillin Sod/Tazobactam (Sod 2.25 gm/ Sodium Chloride) 100 mls @ 200 mls/ hr IVPB Q6HR [facility] Last Admin: 08/24/18 06:03 Dose: 100 mls Dextrose/Water (D5w) 1,000 mls @ 0 mls/hr IV .Q0M PRN PRN Reason: Hypoglycemia Last Admin: 08/22/18 21:09 Dose: 1,000 mls Diltiazem HCl 125 mg/Miscellaneous Medication 1 each/ Sodium Chloride 125 mls @ 0 mls/hr IVPB INF [facility]; Protocol Last Admin: 08/23/18 10:28 Dose: 125 mls Insulin Human Lispro (Humalog) 0 units SC .MODERATE SLIDING SC PRN PRN Reason: Moderate Correctional Scale Last Admin: 08/23/18 18:19 Dose: 4 unit Insulin Human Lispro (Humalog) 0 units SC .BEDTIME SLIDING SC PRN PRN Reason: Bedtime Correctional Scale Last Admin: 08/22/18 21:28 Dose: 4 unit Insulin Human Regular (Humulin R) 5 units SC [facility] Last Admin: 08/24/18 09:07 Dose: 5 unit Iron/Minerals/Multivitamins (Theragran M) 1 tab PO DAILY [facility] Last Admin: 08/24/18 09:06 Dose: 1 tab Loratadine (Claritin) 10 mg PO DAILYPRN PRN PRN Reason: ALLERGY Lorazepam (Ativan) 0.5 mg PO [facility] Last Admin: 08/23/18 20:32 Dose: 0.5 mg Ondansetron HCl (Zofran) 4 mg IVP Q6H PRN PRN Reason: Nausea/Vomiting Pantoprazole Sodium (Protonix) 40 mg PO DAILY [facility] Last Admin: 08/24/18 09:06 Dose: 40 mg Patient Own Medication (Patient's Home Medication) 0 each SC Q7D [facility] Polyethylene Glycol (Miralax) 17 gm PO DAILY PRN PRN Reason: Constipation Primidone (Mysoline) 150 mg PO HS [facility] Last Admin: 08/23/18 20:31 Dose: 150 mg Sodium Chloride (Flush - Normal Saline) 10 ml IVF Q12HR [facility] Last Admin: 08/24/18 09:10 Dose: 10 ml Sodium Chloride (Flush - Normal Saline) 10 ml IVF PRN PRN PRN Reason: Saline Flush Last Admin: 08/23/18 18:24 Dose: 10 ml
[2018-08-24] MEDS: HumaLOG 300 UNITS/3 ML VIAL SC PRN ×2 (13:13→16:55)
[2018-08-24] MEDS: Donepezil HCl 5 MG TAB PO SCH (21:02)
[2018-08-24] MEDS: Lorazepam 0.5 MG TAB PO SCH (21:03)
[2018-08-24] MEDS: Primidone 50 MG TAB PO SCH (21:03)
[2018-08-24] MEDS: Atorvastatin Calcium 40 MG TAB PO SCH (21:08)
[2018-08-25] MEDS: Diltiazem HCl 125 MG, Admixture Fee 1 EACH in Sodium Chloride 0.9% 100 ML IVPB SCH ×2 (01:49→21:39)
[2018-08-25 05:38] LABS: Anion Gap 15 mmol/L (10-20); BUN (Urea Nitrogen) 21 mg/dL (9.8-20.1); Calc. Creatinine Clearance 41 mL/min (70-130); Calcium 8.5 mg/dL (7.8-10.44); Carbon Dioxide 25 mmol/L (23-31); Chloride 103 mmol/L (98-107); Estimated GFR-MDRD 36; Glucose 164 mg/dL (83-110); Potassium 3.8 mmol/L (3.5-5.1); Sodium 139 mmol/L (136-145)
[2018-08-25] MEDS: DULoxetine 30 MG CAP PO SCH (09:22)
[2018-08-25] MEDS: Gabapentin 300 MG CAP PO SCH ×3 (09:22→21:30)
[2018-08-25] MEDS: Glimepiride 1 MG TAB PO SCH ×2 (09:23→21:33)
[2018-08-25] MEDS: Aspirin 81 mg Enteric Coated Tablet PO SCH (09:23)
[2018-08-25] MEDS: Multivitamin W/ Minerals 1 TAB PO SCH (09:23)
[2018-08-25] MEDS: Digoxin 0.125 MG TAB PO SCH (09:23)
[2018-08-25] MEDS: Clopidogrel Bisulfate 75 MG TAB PO SCH (09:23)
[2018-08-25] MEDS: Bumetanide 1 MG TAB PO SCH (09:23)
[2018-08-25] MEDS: Enoxaparin Sodium 30 MG/0.3 ML SYRINGE SC SCH (09:24)
[2018-08-25] MEDS: Insulin Regular 300 UNITS/3 ML VIAL SC SCH ×4 (09:31→21:32)
[2018-08-25] MEDS: Ascorbic Acid 500 mg Chewable Tablet PO SCH ×2 (09:39→21:31)
--- NOTE | 2018-08-25 10:03 | PRG ---
DATE OF SERVICE: 08/25/2018 OBJECTIVE: She is feeling okay, had no acute complaints. OBJECTIVE: VITAL SIGNS: Temperature 98.5, pulse 85, respirations 18, O2 saturation 98% on 3 L, blood pressure 108/53. She is still on a Cardizem drip 10 mg an hour. HEENT: Unremarkable. NECK: No JVD. CHEST: Fairly clear. CARDIAC: S1, S2 irregular and tachycardic. ABDOMEN: Soft. EXTREMITIES: No edema. ASSESSMENT: 1. Atrial fibrillation with rapid ventricular response. 2. Influenza. PLAN: I will go ahead and stop her nebulization treatments as that could be affecting her tachycardia. Increase activity as tolerated. Hopefully wean off Cardizem. Job ID: [id number]
--- NOTE | 2018-08-25 10:15 | PDOC.PN ---
- Subjective Encounter Start Date: 08/25/18 Encounter Start Time: 07:40 Patient seen and examined. No new complaints. No overnight events still on cardizem drip - Objective Resuscitation Status - Order Detail: 08/19/18 22:16 Resuscitation Status Routine Resuscitation Status: DNAR: NO Resuscitation Discussed with: Patient's son ANA Reviewed: Yes Vital Signs & Weight: Vital Signs (12 hours) Temp Pulse Resp BP Pulse Ox 08/25/18 09:23 122 H 08/25/18 07:30 85 18 98 08/25/18 04:00 98.5 F 72 20 108/53 L 99 08/25/18 00:18 83 18 95 Weight Admit Weight 170 lb Weight 192 lb 6.4 oz Most Recent Monitor Data Heart Rate from ECG 90 NIBP 168/74 NIBP BP-Mean 105 Respiration from ECG 20 SpO2 96 I&O: 08/24/18 08/25/18 08/26/18 06:59 06:59 06:59 Intake Total 2040 1140 Output Total 2750 1200 Balance -710 -60 Result Diagrams: 08/19/18 04:00 08/25/18 04:22 Additional Labs: Accuchecks 08/25/18 08/24/18 08/24/18 06:16 20:25 16:55 POC Glucose 177 H 158 H 296 H 08/24/18 11:06 POC Glucose 401 H EKG Reviewed by me: Yes Phys Exam - Physical Examination Constitutional: NAD HEENT: PERRLA, moist MMs, sclera anicteric Neck: no JVD, supple Respiratory: no wheezing, no rales, no rhonchi Cardiovascular: no significant murmur, irregular Gastrointestinal: soft, non-tender, no distention, positive bowel sounds Musculoskeletal: no edema, pulses present Neurological: non-focal, normal sensation Lymphatic: no nodes Psychiatric: normal affect Skin: no rash, normal turgor Dx/Plan (1) Acute on chronic kidney failure Code(s): N17.9 - ACUTE KIDNEY FAILURE, UNSPECIFIED; N18.9 - CHRONIC KIDNEY DISEASE, UNSPECIFIED Status: Acute Qualifiers: Chronic kidney disease stage: stage 2 (mild) Comment: baseline CKD-3 (2) Influenza A Code(s): J10.1 - FLU DUE TO OTH IDENT INFLUENZA VIRUS W OTH RESP MANIFEST Status: Acute Comment: on Tamiflu (3) DM type 2 (diabetes mellitus, type 2) Status: Chronic Qualifiers: Diabetes mellitus complication status: with unspecified complications (4) Dementia Code(s): F03.90 - UNSPECIFIED DEMENTIA WITHOUT BEHAVIORAL DISTURBANCE Status: Chronic Qualifiers: Dementia type: Alzheimer's disease Dementia behavioral disturbance: without behavioral disturbance (5) Diastolic CHF, chronic Code(s): I50.32 - CHRONIC DIASTOLIC (CONGESTIVE) HEART FAILURE Status: Chronic Comment: stage C (6) Dyslipidemia Code(s): E78.5 - HYPERLIPIDEMIA, UNSPECIFIED Status: Chronic (7) H/O: CVA (cerebrovascular accident) Code(s): Z86.73 - PRSNL HX OF TIA (TIA), AND CEREB INFRC W/O RESID DEFICITS Status: Chronic Comment: 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 (9) Atrial fibrillation with RVR Code(s): I48.91 - UNSPECIFIED ATRIAL FIBRILLATION Status: Resolved Comment: resolved with Diltiazem drip (10) Hypernatremia Code(s): E87.0 - HYPEROSMOLALITY AND HYPERNATREMIA Status: Resolved Comment : fluids adjusted (11) Sepsis Code(s): A41.9 - SEPSIS, UNSPECIFIED ORGANISM Status: Resolved - Plan cont current plan of care, continue antibiotics * increase po cardizem * add digoxin * wean off drip as tolerated * dc duoneb * medication reviewed as below * symptomatic treatment. Review of Systems - Review of Systems Other: not reliable due to dementia - Medications/Allergies Allergies/Adverse Reactions: Allergies Allergy/AdvReac Type Severity Reaction Status Date / Time ciprofloxacin [From Cipro] Allergy Verified 08/18/18 01:07 Medications: Current Medications Acetaminophen (Tylenol) 650 mg PO Q4H PRN PRN Reason: Headache/Fever/Mild Pain (1-3) Last Admin: 08/20/18 15:31 Dose: 650 mg Ascorbic Acid (Vitamin C) 500 mg PO BID [facility] Last Admin: 08/25/18 09:39 Dose: Not Given Aspirin (Ecotrin) 81 mg PO DAILY [facility] Last Admin: 08/25/18 09:23 Dose: 81 mg Atorvastatin Calcium (Lipitor) 80 mg PO HS [facility] Last Admin: 08/24/18 21:08 Dose: 80 mg Benzonatate (Tessalon) 100 mg PO TID PRN PRN Reason: Cough Bisacodyl (Dulcolax) 10 mg PO DAILYPRN PRN PRN Reason: Constipation Bisacodyl (Dulcolax) 5 mg PO DAILY PRN PRN Reason: Constipation Bumetanide (Bumex) 1 mg PO DAILY [facility] Last Admin: 08/25/18 09:23 Dose: 1 mg Clopidogrel Bisulfate (Plavix) 75 mg PO DAILY [facility] Last Admin: 08/25/18 09:23 Dose: 75 mg Dextrose/Water (Dextrose 50%) 25 gm SLOW IVP PRN PRN PRN Reason: Hypoglycemia Digoxin (Lanoxin) 0.125 mg PO DAILY [facility] Last Admin: 08/25/18 09:23 Dose: 0.125 mg Diltiazem HCl (Cardizem) 60 mg PO [facility] Last Admin: 08/25/18 09:22 Dose: 60 mg Donepezil HCl (Aricept) 5 mg PO [facility] Last Admin: 08/24/18 21:02 Dose: 5 mg Duloxetine HCl (Cymbalta) 30 mg PO DAILY [facility] Last Admin: 08/25/18 09:22 Dose: 30 mg Enoxaparin Sodium (Lovenox) 30 mg SC 0900 [facility] Last Admin: 08/25/18 09:24 Dose: 30 mg Gabapentin (Neurontin) 600 mg PO TID [facility] Last Admin: 08/25/18 09:22 Dose: 600 mg Glimepiride (Amaryl) 1 mg PO BID [facility] Last Admin: 08/25/18 09:23 Dose: 1 mg Glucagon (Glucagon) 1 mg IM PRN PRN PRN Reason: Hypoglycemia Hydralazine HCl (Apresoline) 10 mg SLOW IVP Q4H PRN PRN Reason: SBP > 180 and HR < 70 Dextrose/Water (D5w) 1,000 mls @ 0 mls/hr IV .Q0M PRN PRN Reason: Hypoglycemia Last Admin: 08/22/18 21:09 Dose: 1,000 mls Diltiazem HCl 125 mg/Miscellaneous Medication 1 each/ Sodium Chloride 125 mls @ 10 mls/hr IVPB INF [facility]; Protocol Last Admin: 08/25/18 01:49 Dose: 125 mls Insulin Human Lispro (Humalog) 0 units SC .MODERATE SLIDING SC PRN PRN Reason: Moderate Correctional Scale Last Admin: 08/24/18 16:55 Dose: 6 unit Insulin Human Lispro (Humalog) 0 units SC .BEDTIME SLIDING SC PRN PRN Reason: Bedtime Correctional Scale Last Admin: 08/22/18 21:28 Dose: 4 unit Insulin Human Regular (Humulin R) 5 units SC ACHS [facility] Last Admin: 08/25/18 09:31 Dose: 5 unit Iron/Minerals/Multivitamins (Theragran M) 1 tab PO DAILY [facility] Last Admin: 08/25/18 09:23 Dose: 1 tab Loratadine (Claritin) 10 mg PO DAILYPRN PRN PRN Reason: ALLERGY Lorazepam (Ativan) 0.5 mg PO [facility] Last Admin: 08/24/18 21:03 Dose: 0.5 mg Ondansetron HCl (Zofran) 4 mg IVP Q6H PRN PRN Reason: Nausea/Vomiting Pantoprazole Sodium (Protonix) 40 mg PO DAILY [facility] Last Admin: 08/25/18 09:22 Dose: 40 mg Patient Own Medication (Patient's Home Medication) 0 each SC Q7D [facility] Polyethylene Glycol (Miralax) 17 gm PO DAILY PRN PRN Reason: Constipation Primidone (Mysoline) 150 mg PO HS [facility] Last Admin: 08/24/18 21:03 Dose: 150 mg Sodium Chloride (Flush - Normal Saline) 10 ml IVF Q12HR [facility] Last Admin: 08/25/18 09:25 Dose: 10 ml Sodium Chloride (Flush - Normal Saline) 10 ml IVF PRN PRN PRN Reason: Saline Flush Last Admin: 08/23/18 18:24 Dose: 10 ml
[2018-08-25] MEDS: Donepezil HCl 5 MG TAB PO SCH (21:31)
[2018-08-25] MEDS: Lorazepam 0.5 MG TAB PO SCH (21:31)
[2018-08-25] MEDS: Atorvastatin Calcium 40 MG TAB PO SCH (21:31)
[2018-08-25] MEDS: Primidone 50 MG TAB PO SCH (21:33)
[2018-08-26] MEDS: Multivitamin W/ Minerals 1 TAB PO SCH (09:58)
[2018-08-26] MEDS: Glimepiride 1 MG TAB PO SCH ×2 (09:58→20:55)
[2018-08-26] MEDS: Ascorbic Acid 500 mg Chewable Tablet PO SCH ×2 (09:58→20:56)
[2018-08-26] MEDS: Gabapentin 300 MG CAP PO SCH ×3 (09:58→20:54)
[2018-08-26] MEDS: Clopidogrel Bisulfate 75 MG TAB PO SCH (09:58)
[2018-08-26] MEDS: Digoxin 0.125 MG TAB PO SCH (09:58)
[2018-08-26] MEDS: DULoxetine 30 MG CAP PO SCH (09:59)
[2018-08-26] MEDS: Aspirin 81 mg Enteric Coated Tablet PO SCH (09:59)
[2018-08-26] MEDS: Bumetanide 1 MG TAB PO SCH (09:59)
[2018-08-26] MEDS: Insulin Regular 300 UNITS/3 ML VIAL SC SCH ×4 (09:59→20:56)
[2018-08-26] MEDS: Enoxaparin Sodium 30 MG/0.3 ML SYRINGE SC SCH (10:00)
--- NOTE | 2018-08-26 10:29 | PRG ---
DATE OF SERVICE: 08/26/2018 SUBJECTIVE: The patient is sitting up with physical therapy, looks to be doing okay. OBJECTIVE: VITAL SIGNS: On exam, she had a temperature 100.5 last night, currently 98.2, pulse 73, respirations 20, O2 saturation 98% on 3.5 L, blood pressure 114/56. HEENT: Unremarkable. NECK: No adenopathy or JVD. LUNGS: Coarse rhonchi bilaterally. CARDIAC: S1 and S2. Regular. ABDOMEN: Soft. EXTREMITIES: Trace edema. ASSESSMENT: 1. Atrial fibrillation with rapid ventricular response. 2. Influenza. 3. Bronchitis. PLAN: Increase activity as tolerated. Hopefully, she is on trach to go back to the long-term soon. No change in therapy plan for this time. Job ID: [id number]
[2018-08-26 11:03] LABS: #Eosinphils 0.1 thou/uL (0.0-0.7); #Lymphocytes 1.1 thou/uL (1.20-3.40); #Monocytes 0.7 thou/uL (0.11-0.59); #Neutrophils 10.9 thou/uL (1.40-6.50); %Basophils 0.1 % (0.0-1.0); %Eosinophils 0.7 % (0.0-10.0); %Lymphocytes 8.2 % (21.0-51.0); %Monocytes 5.5 % (0.0-10.0); %Neutrophils 85.4 % (42.0-75.0); Hemoglobin 9.9 g/dL (12.0-16.0); Mean Corpuscular HGB CONC 32.2 g/dL (32.0-36.0); Mean Corpuscular Hemoglobin 30.7 pg (27.0-31.0); Mean Corpuscular Volume 95.4 fL (78.0-98.0); Mean Platelet Volume 6.8 fL (7.4-10.4); Platelet Count 554 thou/uL (130-400); RBC Distribution Width 12.7 % (11.5-14.5); Red Blood Cell (RBC) Count 3.24 mill/uL (4.20-5.40); White Blood Cell (WBC) Count 12.8 thou/uL (4.8-10.8)
[2018-08-26 11:18] LABS: Anion Gap 16 mmol/L (10-20); BUN (Urea Nitrogen) 19 mg/dL (9.8-20.1); Calc. Creatinine Clearance 48 mL/min (70-130); Calcium 9.4 mg/dL (7.8-10.44); Carbon Dioxide 24 mmol/L (23-31); Chloride 103 mmol/L (98-107); Estimated GFR-MDRD 42; Glucose 256 mg/dL (83-110); Potassium 3.9 mmol/L (3.5-5.1); Sodium 139 mmol/L (136-145)
--- NOTE | 2018-08-26 11:30 | DIS ---
DATE OF ADMISSION: 08/18/2018 DATE OF DISCHARGE: 08/26/2018 PRIMARY CARE PHYSICIAN: Dr. Flaco Almanza. DISCHARGE DISPOSITION: jail home. PRIMARY DISCHARGE DIAGNOSES: 1. Influenza A. 2. Right middle lobe pneumonia. 3. Acute on chronic kidney failure. 4. Atrial fibrillation with rapid ventricular response. 5. Hypernatremia, resolved. 6. Sepsis with acute organ dysfunction, resolved. SECONDARY DISCHARGE DIAGNOSES: Alzheimer's dementia, physical deconditioning, chronic diastolic stage C heart failure, diabetes type 2, dyslipidemia, hypertension, and chronic atrial fibrillation. PRIMARY PROCEDURE/OPERATION: None. RADIOLOGICAL INVESTIGATION: Chest x-ray. SIGNIFICANT LABORATORY DATA: WBC 10.0, hemoglobin 10.6, and platelets 230. Sodium 139, potassium 3.8, creatinine 1.41, and calcium 8.5. Blood culture negative. Urine culture negative. DISCHARGE MEDICATIONS: 1. Tylenol No. 3 one or two tablets p.o. q.8 hourly p.r.n. 2. Alprazolam 0.25 mg p.o. q.h.s. 3. Amlodipine 10 mg p.o. daily. 4. Vitamin C 500 mg p.o. b.i.d. 5. Aspirin 81 mg daily. 6. Lipitor 80 mg p.o. q.h.s. 7. Bumex 1 mg p.o. daily. 8. Plavix 75 mg p.o. daily. 9. Aricept 5 mg p.o. q.h.s. 10. Trulicity 0.75 mg subcu every 7 days. 11. Cymbalta 30 mg daily. 12. Gabapentin 600 mg t.i.d. 13. Amaryl 1 mg p.o. b.i.d. 14. NovoLog insulin as per sliding scale. 15. Claritin 10 mg daily. 16. Mobic 15 mg p.o. daily. 17. Metformin 250 mg p.o. b.i.d. 18. Multivitamin one tablet p.o. daily. 19. Nystatin powder topical application as directed. 20. Omeprazole 20 mg p.o. daily. 21. MiraLAX 17 g p.o. daily p.r.n. 22. Primidone 150 mg p.o. at bedtime. 23. Senokot one tablet daily. 24. Augmentin 875 mg twice daily for 5 more days. 25. Digoxin 0.125 mg p.o. daily. 26. Cardizem 60 mg p.o. t.i.d. 27. Florastor 250 mg p.o. daily. CONTRAINDICATION: None. CODE STATUS: DNR. INPATIENT NIBBLER OPERATOR: Dr. Youssef was following while in hospital. TEST RESULTS PENDING ON DISCHARGE: None. ALLERGIES: CIPROFLOXACIN. DISCHARGE PLAN: Posthospital, the patient will be discharged to [facility]. Subsequently, the patient will follow up with the primary care physician. HOSPITAL COURSE: An 83-year-old female with above-mentioned medical problem, who was admitted by Dr. Gallegos. Please see her H and P for further details. The patient was brought to ER from [facility] for increasing cough, increasing shortness of breath. She was having fever and chills. She was diagnosed with influenza. She was also having right middle lobe pneumonia, and while in hospital, we noted that she was also having atrial fibrillation with RVR. The patient was having sepsis criteria. She was admitted to the [facility] initially, and she was treated with broad-spectrum antibiotic therapy. The patient's atrial fibrillation was controlled with Cardizem drip, and subsequently, she required digoxin and p.o. Cardizem. This patient has chronic physical deconditioning. She has finished complete treatment for the flu while in the hospital. While in hospital, she was given broad-spectrum antibiotic therapy initially, and on discharge, we changed to Augmentin for another 5 days. Her routine blood test is unremarkable. The patient is clinically stable for discharge. The patient is seen and examined at bedside today. Paper work for discharge done. Discharge medication reconciliation done. REVIEW OF SYSTEMS: Tried to review with the patient, but unable to review because of her cognitive status. PHYSICAL EXAMINATION: VITAL SIGNS: Currently, temperature 98.2, pulse 73, respiratory rate 20, saturation 98% on 2 to 3 L oxygen, blood pressure 114/56, and weight 193 pounds. GENERAL: The patient is currently alert and awake up to her baseline level. No acute distress. HEENT: Head; normocephalic and atraumatic. Eyes; pupils round and reactive to light. Extraocular muscle intact. ENT, oropharynx within normal limits. LUNGS: Clear to auscultation without any obvious rhonchi or rales. CARDIAC: S1 and S2. Appears irregular. No murmur. No gallop. No rub. ABDOMEN: Soft and benign. EXTREMITIES: No edema. NEUROLOGIC: Grossly nonfocal examination. Overall, the patient is medically stable for discharge. Job ID: [id number]
--- NOTE | 2018-08-26 11:41 | RAD ---
XR Chest 1 View HISTORY: Pneumonia COMPARISON: 08/17/2018 FINDINGS: The heart size is normal. There has been interval worsening of the patchy consolidation in the right upper lobe since the previous study. No pneumothoraces are large effusions are seen. IMPRESSION: Interval worsening of right lung pneumonia since 08/17/2018
--- NOTE | 2018-08-26 11:51 | PDOC.PN ---
- Subjective Encounter Start Date: 08/26/18 Encounter Start Time: 09:30 -: old records requested/rev Patient seen and examined. No new complaints. No overnight events - Objective Resuscitation Status - Order Detail: 08/19/18 22:16 Resuscitation Status Routine Resuscitation Status: DNAR: NO Resuscitation Discussed with: Patient's son ANA Reviewed: Yes Vital Signs & Weight: Vital Signs (12 hours) Temp Pulse Resp BP Pulse Ox 08/26/18 09:58 88 08/26/18 04:00 98.2 F 73 20 114/56 L 98 Weight Admit Weight 170 lb Weight 193 lb 8 oz Most Recent Monitor Data Heart Rate from ECG 90 NIBP 168/74 NIBP BP-Mean 105 Respiration from ECG 20 SpO2 96 I&O: 08/25/18 08/26/18 08/27/18 06:59 06:59 06:59 Intake Total 1140 850 Output Total 1200 1250 Balance -60 -400 Result Diagrams: 08/26/18 10:42 08/26/18 10:42 Additional Labs: Accuchecks 08/26/18 08/26/18 08/25/18 10:56 05:35 20:41 POC Glucose 257 H 182 H 338 H 08/25/18 17:55 POC Glucose 254 H Radiology Reviewed by me: Yes EKG Reviewed by me: Yes Phys Exam - Physical Examination Constitutional: NAD HEENT: PERRLA, moist MMs, sclera anicteric Neck: no JVD, supple Respiratory: no wheezing, no rhonchi coarse Cardiovascular: no significant murmur, irregular Gastrointestinal: soft, non-tender, no distention Musculoskeletal: no edema, pulses present Neurological: non-focal, normal sensation Lymphatic: no nodes Psychiatric: normal affect Skin: no rash, normal turgor Dx/Plan (1) Acute on chronic kidney failure Code(s): N17.9 - ACUTE KIDNEY FAILURE, UNSPECIFIED; N18.9 - CHRONIC KIDNEY DISEASE, UNSPECIFIED Status: Acute Qualifiers: Chronic kidney disease stage: stage 2 (mild) Comment: baseline CKD-3 (2) Influenza A Code(s): J10.1 - FLU DUE TO OTH IDENT INFLUENZA VIRUS W OTH RESP MANIFEST Status: Acute Comment: on Tamiflu (3) DM type 2 (diabetes mellitus, type 2) Status: Chronic Qualifiers: Diabetes mellitus complication status: with unspecified complications (4) Dementia Code(s): F03.90 - UNSPECIFIED DEMENTIA WITHOUT BEHAVIORAL DISTURBANCE Status: Chronic Qualifiers: Dementia type: Alzheimer's disease Dementia behavioral disturbance: without behavioral disturbance (5) Diastolic CHF, chronic Code(s): I50.32 - CHRONIC DIASTOLIC (CONGESTIVE) HEART FAILURE Status: Chronic Comment: stage C (6) Dyslipidemia Code(s): E78.5 - HYPERLIPIDEMIA, UNSPECIFIED Status: Chronic (7) H/O: CVA (cerebrovascular accident) Code(s): Z86.73 - PRSNL HX OF TIA (TIA), AND CEREB INFRC W/O RESID DEFICITS Status: Chronic Comment: 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 (9) Atrial fibrillation with RVR Code(s): I48.91 - UNSPECIFIED ATRIAL FIBRILLATION Status: Resolved Comment: resolved with Diltiazem drip (10) Hypernatremia Code(s): E87.0 - HYPEROSMOLALITY AND HYPERNATREMIA Status: Resolved Comment : fluids adjusted (11) Sepsis Code(s): A41.9 - SEPSIS, UNSPECIFIED ORGANISM Status: Resolved - Plan cont current plan of care, continue antibiotics * medication reviewed as below * symptomatic treatment * see discharge summery * augmentin and doxy on discharge. Review of Systems - Review of Systems Other: not reliable - Medications/Allergies Allergies/Adverse Reactions: Allergies Allergy/AdvReac Type Severity Reaction Status Date / Time ciprofloxacin [From Cipro] Allergy Verified 08/18/18 01:07 Medications: Current Medications Acetaminophen (Tylenol) 650 mg PO Q4H PRN PRN Reason: Headache/Fever/Mild Pain (1-3) Last Admin: 08/20/18 15:31 Dose: 650 mg Ascorbic Acid (Vitamin C) 500 mg PO BID [facility] Last Admin: 08/26/18 09:58 Dose: 500 mg Aspirin (Ecotrin) 81 mg PO DAILY [facility] Last Admin: 08/26/18 09:59 Dose: 81 mg Atorvastatin Calcium (Lipitor) 80 mg PO HS [facility] Last Admin: 08/25/18 21:31 Dose: 80 mg Benzonatate (Tessalon) 100 mg PO TID PRN PRN Reason: Cough Bisacodyl (Dulcolax) 10 mg PO DAILYPRN PRN PRN Reason: Constipation Bisacodyl (Dulcolax) 5 mg PO DAILY PRN PRN Reason: Constipation Bumetanide (Bumex) 1 mg PO DAILY [facility] Last Admin: 08/26/18 09:59 Dose: 1 mg Clopidogrel Bisulfate (Plavix) 75 mg PO DAILY [facility] Last Admin: 08/26/18 09:58 Dose: 75 mg Dextrose/Water (Dextrose 50%) 25 gm SLOW IVP PRN PRN PRN Reason: Hypoglycemia Digoxin (Lanoxin) 0.125 mg PO DAILY [facility] Last Admin: 08/26/18 09:58 Dose: 0.125 mg Diltiazem HCl (Cardizem) 60 mg PO ACHS [facility] Last Admin: 08/26/18 09:59 Dose: 60 mg Donepezil HCl (Aricept) 5 mg PO HS [facility] Last Admin: 08/25/18 21:31 Dose: 5 mg Duloxetine HCl (Cymbalta) 30 mg PO DAILY [facility] Last Admin: 08/26/18 09:59 Dose: 30 mg Enoxaparin Sodium (Lovenox) 30 mg SC 0900 [facility] Last Admin: 08/26/18 10:00 Dose: 30 mg Gabapentin (Neurontin) 600 mg PO TID [facility] Last Admin: 08/26/18 09:58 Dose: 600 mg Glimepiride (Amaryl) 1 mg PO BID [facility] Last Admin: 08/26/18 09:58 Dose: 1 mg Glucagon (Glucagon) 1 mg IM PRN PRN PRN Reason: Hypoglycemia Hydralazine HCl (Apresoline) 10 mg SLOW IVP Q4H PRN PRN Reason: SBP > 180 and HR < 70 Dextrose/Water (D5w) 1,000 mls @ 0 mls/hr IV .Q0M PRN PRN Reason: Hypoglycemia Last Admin: 08/22/18 21:09 Dose: 1,000 mls Insulin Human Lispro (Humalog) 0 units SC .MODERATE SLIDING SC PRN PRN Reason: Moderate Correctional Scale Last Admin: 08/24/18 16:55 Dose: 6 unit Insulin Human Lispro (Humalog) 0 units SC .BEDTIME SLIDING SC PRN PRN Reason: Bedtime Correctional Scale Last Admin: 08/22/18 21:28 Dose: 4 unit Insulin Human Regular (Humulin R) 5 units SC ACHS [facility] Last Admin: 08/26/18 09:59 Dose: 5 unit Iron/Minerals/Multivitamins (Theragran M) 1 tab PO DAILY [facility] Last Admin: 08/26/18 09:58 Dose: 1 tab Loratadine (Claritin) 10 mg PO DAILYPRN PRN PRN Reason: ALLERGY Lorazepam (Ativan) 0.5 mg PO HS [facility] Last Admin: 08/25/18 21:31 Dose: 0.5 mg Ondansetron HCl (Zofran) 4 mg IVP Q6H PRN PRN Reason: Nausea/Vomiting Pantoprazole Sodium (Protonix) 40 mg PO DAILY [facility] Last Admin: 08/26/18 09:58 Dose: 40 mg Patient Own Medication (Patient's Home Medication) 0 each SC Q7D [facility] Polyethylene Glycol (Miralax) 17 gm PO DAILY PRN PRN Reason: Constipation Primidone (Mysoline) 150 mg PO HS [facility] Last Admin: 08/25/18 21:33 Dose: 150 mg Sodium Chloride (Flush - Normal Saline) 10 ml IVF Q12HR [facility] Last Admin: 08/26/18 10:00 Dose: 10 ml Sodium Chloride (Flush - Normal Saline) 10 ml IVF PRN PRN PRN Reason: Saline Flush Last Admin: 08/23/18 18:24 Dose: 10 ml
[2018-08-26] MEDS: HumaLOG 300 UNITS/3 ML VIAL SC PRN (13:04)
[2018-08-26] MEDS: Benzonatate 100 MG CAP PO PRN (20:54)
[2018-08-26] MEDS: Lorazepam 0.5 MG TAB PO SCH (20:54)
[2018-08-26] MEDS: Doxycycline 100 MG CAP PO SCH (20:55)
[2018-08-26] MEDS: Atorvastatin Calcium 40 MG TAB PO SCH (20:55)
[2018-08-26] MEDS: Primidone 50 MG TAB PO SCH (20:55)
[2018-08-26] MEDS: Donepezil HCl 5 MG TAB PO SCH (20:56)
[2018-08-26] MEDS: Amoxicillin/Potassium Clav 875 MG TAB PO SCH (20:56)
[2018-08-27] MEDS: Amoxicillin/Potassium Clav 875 MG TAB PO SCH ×2 (07:51→21:58)
[2018-08-27] MEDS: Bumetanide 1 MG TAB PO SCH (07:52)
[2018-08-27] MEDS: Ascorbic Acid 500 mg Chewable Tablet PO SCH ×2 (07:52→21:58)
[2018-08-27] MEDS: Multivitamin W/ Minerals 1 TAB PO SCH (07:52)
[2018-08-27] MEDS: Digoxin 0.125 MG TAB PO SCH (07:52)
[2018-08-27] MEDS: Doxycycline 100 MG CAP PO SCH ×2 (07:52→21:58)
[2018-08-27] MEDS: DULoxetine 30 MG CAP PO SCH (07:52)
[2018-08-27] MEDS: Gabapentin 300 MG CAP PO SCH ×3 (07:53→21:58)
[2018-08-27] MEDS: Clopidogrel Bisulfate 75 MG TAB PO SCH (07:53)
[2018-08-27] MEDS: Enoxaparin Sodium 30 MG/0.3 ML SYRINGE SC SCH (07:54)
[2018-08-27] MEDS: Insulin Regular 300 UNITS/3 ML VIAL SC SCH ×4 (07:54→21:59)
[2018-08-27] MEDS: Aspirin 81 mg Enteric Coated Tablet PO SCH (07:54)
[2018-08-27] MEDS: Glimepiride 1 MG TAB PO SCH ×2 (08:59→21:58)
--- NOTE | 2018-08-27 09:35 | PDOC.PN ---
- Subjective Encounter Start Date: 08/27/18 Encounter Start Time: 07:50 -: old records requested/rev Patient seen and examined. No new complaints. No overnight events - Objective Resuscitation Status - Order Detail: 08/19/18 22:16 Resuscitation Status Routine Resuscitation Status: DNAR: NO Resuscitation Discussed with: Patient's son ANA Reviewed: Yes Vital Signs & Weight: Vital Signs (12 hours) Temp Pulse Resp BP Pulse Ox 08/27/18 07:52 81 08/27/18 07:30 96 08/27/18 07:28 97.9 F 81 17 173/74 H 96 08/27/18 04:00 97.1 F L 73 20 156/71 H 97 08/27/18 00:00 20 Weight Admit Weight 170 lb Weight 192 lb Most Recent Monitor Data Heart Rate from ECG 90 NIBP 168/74 NIBP BP-Mean 105 Respiration from ECG 20 SpO2 96 I&O: 08/26/18 08/27/18 08/28/18 06:59 06:59 06:59 Intake Total 850 730 Output Total 1250 1350 Balance -400 -620 Result Diagrams: 08/26/18 10:42 08/26/18 10:42 Additional Labs: Accuchecks 08/27/18 08/26/18 08/26/18 05:46 20:07 16:49 POC Glucose 143 H 214 H 230 H 08/26/18 10:56 POC Glucose 257 H EKG Reviewed by me: Yes (afib) Phys Exam - Physical Examination Constitutional: NAD HEENT: PERRLA, moist MMs, sclera anicteric Neck: no JVD, supple Respiratory: no wheezing, no rales, no rhonchi Cardiovascular: no significant murmur, irregular Gastrointestinal: soft, non-tender, no distention, positive bowel sounds Musculoskeletal: no edema, pulses present Neurological: non-focal Lymphatic: no nodes Psychiatric: normal affect Skin: no rash, normal turgor Dx/Plan (1) Acute on chronic kidney failure Code(s): N17.9 - ACUTE KIDNEY FAILURE, UNSPECIFIED; N18.9 - CHRONIC KIDNEY DISEASE, UNSPECIFIED Status: Acute Qualifiers: Chronic kidney disease stage: stage 2 (mild) Comment: baseline CKD-3 (2) Influenza A Code(s): J10.1 - FLU DUE TO OTH IDENT INFLUENZA VIRUS W OTH RESP MANIFEST Status: Acute Comment: on Tamiflu (3) DM type 2 (diabetes mellitus, type 2) Status: Chronic Qualifiers: Diabetes mellitus complication status: with unspecified complications (4) Dementia Code(s): F03.90 - UNSPECIFIED DEMENTIA WITHOUT BEHAVIORAL DISTURBANCE Status: Chronic Qualifiers: Dementia type: Alzheimer's disease Dementia behavioral disturbance: without behavioral disturbance (5) Diastolic CHF, chronic Code(s): I50.32 - CHRONIC DIASTOLIC (CONGESTIVE) HEART FAILURE Status: Chronic Comment: stage C (6) Dyslipidemia Code(s): E78.5 - HYPERLIPIDEMIA, UNSPECIFIED Status: Chronic (7) H/O: CVA (cerebrovascular accident) Code(s): Z86.73 - PRSNL HX OF TIA (TIA), AND CEREB INFRC W/O RESID DEFICITS Status: Chronic Comment: 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 (9) Atrial fibrillation with RVR Code(s): I48.91 - UNSPECIFIED ATRIAL FIBRILLATION Status: Resolved Comment: resolved with Diltiazem drip (10) Hypernatremia Code(s): E87.0 - HYPEROSMOLALITY AND HYPERNATREMIA Status: Resolved Comment : fluids adjusted (11) Sepsis Code(s): A41.9 - SEPSIS, UNSPECIFIED ORGANISM Status: Resolved - Plan cont current plan of care, continue antibiotics * continue augmentin and doxy * medication reviewed as below * symptomatic treatment * rate controlled. Review of Systems - Review of Systems ENT: negative: Ear Pain, Ear Discharge, Nose Pain, Nose Discharge, Nose Congestion, Mouth Pain, Mouth Swelling, Throat Pain, Throat Swelling, Other Respiratory: negative: Cough, Dry, Shortness of Breath, Hemoptysis, SOB with Excertion, Pleuritic Pain, Sputum, Wheezing Cardiovascular: negative: chest pain, palpitations, orthopnea, paroxysmal nocturnal dyspnea, edema, light headedness, other Gastrointestinal: negative: Nausea, Vomiting, Abdominal Pain, Diarrhea, Constipation, Melena, Hematochezia, Other Genitourinary: negative: Dysuria, Frequency, Incontinence, Hematuria, Retention , Other Musculoskeletal: negative: Neck Pain, Shoulder Pain, Arm Pain, Back Pain, Hand Pain, Leg Pain, Foot Pain, Other - Medications/Allergies Allergies/Adverse Reactions: Allergies Allergy/AdvReac Type Severity Reaction Status Date / Time ciprofloxacin [From Cipro] Allergy Verified 08/18/18 01:07 Medications: Current Medications Acetaminophen (Tylenol) 650 mg PO Q4H PRN PRN Reason: Headache/Fever/Mild Pain (1-3) Last Admin: 08/20/18 15:31 Dose: 650 mg Amoxicillin/Clavulanate Potassium (Augmentin) 875 mg PO Q12HR [facility] Last Admin: 08/27/18 07:51 Dose: 875 mg Ascorbic Acid (Vitamin C) 500 mg PO BID [facility] Last Admin: 08/27/18 07:52 Dose: 500 mg Aspirin (Ecotrin) 81 mg PO DAILY [facility] Last Admin: 08/27/18 07:54 Dose: 81 mg Atorvastatin Calcium (Lipitor) 80 mg PO HS [facility] Last Admin: 08/26/18 20:55 Dose: 80 mg Benzonatate (Tessalon) 100 mg PO TID PRN PRN Reason: Cough Last Admin: 08/26/18 20:54 Dose: 100 mg Bisacodyl (Dulcolax) 10 mg PO DAILYPRN PRN PRN Reason: Constipation Bisacodyl (Dulcolax) 5 mg PO DAILY PRN PRN Reason: Constipation Bumetanide (Bumex) 1 mg PO DAILY [facility] Last Admin: 08/27/18 07:52 Dose: 1 mg Clopidogrel Bisulfate (Plavix) 75 mg PO DAILY [facility] Last Admin: 08/27/18 07:53 Dose: 75 mg Dextrose/Water (Dextrose 50%) 25 gm SLOW IVP PRN PRN PRN Reason: Hypoglycemia Digoxin (Lanoxin) 0.125 mg PO DAILY [facility] Last Admin: 08/27/18 07:52 Dose: 0.125 mg Diltiazem HCl (Cardizem) 60 mg PO ACHS [facility] Last Admin: 08/27/18 07:52 Dose: 60 mg Donepezil HCl (Aricept) 5 mg PO HS [facility] Last Admin: 08/26/18 20:56 Dose: 5 mg Doxycycline Hyclate (Vibramycin) 100 mg PO BID [facility] Last Admin: 08/27/18 07:52 Dose: 100 mg Duloxetine HCl (Cymbalta) 30 mg PO DAILY [facility] Last Admin: 08/27/18 07:52 Dose: 30 mg Enoxaparin Sodium (Lovenox) 30 mg SC 0900 [facility] Last Admin: 08/27/18 07:54 Dose: 30 mg Gabapentin (Neurontin) 600 mg PO TID [facility] Last Admin: 08/27/18 07:53 Dose: 600 mg Glimepiride (Amaryl) 1 mg PO BID [facility] Last Admin: 08/27/18 08:59 Dose: 1 mg Glucagon (Glucagon) 1 mg IM PRN PRN PRN Reason: Hypoglycemia Hydralazine HCl (Apresoline) 10 mg SLOW IVP Q4H PRN PRN Reason: SBP > 180 and HR < 70 Dextrose/Water (D5w) 1,000 mls @ 0 mls/hr IV .Q0M PRN PRN Reason: Hypoglycemia Last Admin: 08/22/18 21:09 Dose: 1,000 mls Insulin Human Lispro (Humalog) 0 units SC .MODERATE SLIDING SC PRN PRN Reason: Moderate Correctional Scale Last Admin: 08/26/18 13:04 Dose: 6 unit Insulin Human Lispro (Humalog) 0 units SC .BEDTIME SLIDING SC PRN PRN Reason: Bedtime Correctional Scale Last Admin: 08/22/18 21:28 Dose: 4 unit Insulin Human Regular (Humulin R) 5 units SC [facility] Last Admin: 08/27/18 07:54 Dose: 5 unit Iron/Minerals/Multivitamins (Theragran M) 1 tab PO DAILY [facility] Last Admin: 08/27/18 07:52 Dose: 1 tab Loratadine (Claritin) 10 mg PO DAILYPRN PRN PRN Reason: ALLERGY Lorazepam (Ativan) 0.5 mg PO HS [facility] Last Admin: 08/26/18 20:54 Dose: 0.5 mg Ondansetron HCl (Zofran) 4 mg IVP Q6H PRN PRN Reason: Nausea/Vomiting Pantoprazole Sodium (Protonix) 40 mg PO DAILY [facility] Last Admin: 08/27/18 07:53 Dose: 40 mg Patient Own Medication (Patient's Home Medication) 0 each SC Q7D [facility] Polyethylene Glycol (Miralax) 17 gm PO DAILY PRN PRN Reason: Constipation Primidone (Mysoline) 150 mg PO [facility] Last Admin: 08/26/18 20:55 Dose: 150 mg Sodium Chloride (Flush - Normal Saline) 10 ml IVF Q12HR [facility] Last Admin: 08/27/18 07:54 Dose: 10 ml Sodium Chloride (Flush - Normal Saline) 10 ml IVF PRN PRN PRN Reason: Saline Flush Last Admin: 08/23/18 18:24 Dose: 10 ml
[2018-08-27] MEDS: HumaLOG 300 UNITS/3 ML VIAL SC PRN ×2 (11:57→17:29)
[2018-08-27 15:09] VITALS: BMI 35.1
[2018-08-27] MEDS: Acetaminophen 325 MG TAB PO PRN (16:16)
[2018-08-27] MEDS: Primidone 50 MG TAB PO SCH (21:58)
[2018-08-27] MEDS: Benzonatate 100 MG CAP PO PRN (21:58)
[2018-08-27] MEDS: Donepezil HCl 5 MG TAB PO SCH (21:59)
[2018-08-27] MEDS: Atorvastatin Calcium 40 MG TAB PO SCH (21:59)
[2018-08-27] MEDS: Lorazepam 0.5 MG TAB PO SCH (22:01)
[2018-08-28 08:08] LABS: #Basophils 0.1 thou/uL (0.0-0.2); #Eosinphils 0.1 thou/uL (0.0-0.7); #Monocytes 0.7 thou/uL (0.11-0.59); #Neutrophils 9.2 thou/uL (1.40-6.50); %Basophils 0.6 % (0.0-1.0); %Lymphocytes 9.3 % (21.0-51.0); %Monocytes 6.6 % (0.0-10.0); %Neutrophils 82.6 % (42.0-75.0); Hemoglobin 9.5 g/dL (12.0-16.0); Mean Corpuscular HGB CONC 31.9 g/dL (32.0-36.0); Mean Corpuscular Hemoglobin 30.3 pg (27.0-31.0); Mean Platelet Volume 6.4 fL (7.4-10.4); Platelet Count 585 thou/uL (130-400); RBC Distribution Width 12.6 % (11.5-14.5); Red Blood Cell (RBC) Count 3.13 mill/uL (4.20-5.40); White Blood Cell (WBC) Count 11.1 thou/uL (4.8-10.8)
[2018-08-28 08:33] LABS: Anion Gap 13 mmol/L (10-20); BUN (Urea Nitrogen) 17 mg/dL (9.8-20.1); Calc. Creatinine Clearance 61 mL/min (70-130); Calcium 9.4 mg/dL (7.8-10.44); Carbon Dioxide 30 mmol/L (23-31); Chloride 100 mmol/L (98-107); Estimated GFR-MDRD 57; Glucose 164 mg/dL (83-110); Potassium 3.7 mmol/L (3.5-5.1); Sodium 139 mmol/L (136-145)
[2018-08-28] MEDS: Doxycycline 100 MG CAP PO SCH (09:02)
[2018-08-28] MEDS: Amoxicillin/Potassium Clav 875 MG TAB PO SCH (09:02)
[2018-08-28] MEDS: Glimepiride 1 MG TAB PO SCH (09:02)
[2018-08-28] MEDS: DULoxetine 30 MG CAP PO SCH (09:03)
[2018-08-28] MEDS: Clopidogrel Bisulfate 75 MG TAB PO SCH (09:03)
[2018-08-28] MEDS: Gabapentin 300 MG CAP PO SCH ×2 (09:03→15:02)
[2018-08-28] MEDS: Aspirin 81 mg Enteric Coated Tablet PO SCH (09:03)
[2018-08-28] MEDS: Multivitamin W/ Minerals 1 TAB PO SCH (09:03)
[2018-08-28] MEDS: Bumetanide 1 MG TAB PO SCH (09:03)
[2018-08-28] MEDS: Ascorbic Acid 500 mg Chewable Tablet PO SCH (09:03)
[2018-08-28] MEDS: Digoxin 0.125 MG TAB PO SCH (09:03)
[2018-08-28] MEDS: Insulin Regular 300 UNITS/3 ML VIAL SC SCH ×2 (09:04→11:51)
[2018-08-28] MEDS: Enoxaparin Sodium 30 MG/0.3 ML SYRINGE SC SCH (09:08)
--- NOTE | 2018-08-28 09:50 | PDOC.PN ---
- Subjective Encounter Start Date: 08/28/18 Encounter Start Time: 07:30 Patient seen and examined. No new complaints. No overnight events - Objective Resuscitation Status - Order Detail: 08/19/18 22:16 Resuscitation Status Routine Resuscitation Status: DNAR: NO Resuscitation Discussed with: Patient's son ANA Reviewed: Yes Vital Signs & Weight: Vital Signs (12 hours) Temp Pulse Resp BP Pulse Ox 08/28/18 09:03 73 08/28/18 04:19 98.2 F 73 16 158/72 H 96 08/28/18 00:00 20 Weight Admit Weight 170 lb Weight 188 lb 8 oz Most Recent Monitor Data Heart Rate from ECG 90 NIBP 168/74 NIBP BP-Mean 105 Respiration from ECG 20 SpO2 96 I&O: 08/27/18 08/28/18 08/29/18 06:59 06:59 06:59 Intake Total 730 600 Output Total 1350 450 Balance -620 150 Result Diagrams: 08/28/18 07:59 08/28/18 07:59 Additional Labs: Accuchecks 08/28/18 08/27/18 08/27/18 05:15 20:06 16:33 POC Glucose 151 H 395 H 280 H 08/27/18 10:36 POC Glucose 260 H EKG Reviewed by me: Yes Phys Exam - Physical Examination Constitutional: NAD HEENT: PERRLA, moist MMs, sclera anicteric Neck: no JVD, supple Respiratory: no wheezing, no rales, no rhonchi, clear to auscultation bilateral Cardiovascular: no significant murmur, irregular Gastrointestinal: soft, non-tender, no distention, positive bowel sounds Musculoskeletal: no edema, pulses present Neurological: non-focal, normal sensation Lymphatic: no nodes Psychiatric: normal affect Skin: no rash, normal turgor Dx/Plan (1) Acute on chronic kidney failure Code(s): N17.9 - ACUTE KIDNEY FAILURE, UNSPECIFIED; N18.9 - CHRONIC KIDNEY DISEASE, UNSPECIFIED Status: Acute Qualifiers: Chronic kidney disease stage: stage 2 (mild) Comment: baseline CKD-3 (2) Influenza A Code(s): J10.1 - FLU DUE TO OTH IDENT INFLUENZA VIRUS W OTH RESP MANIFEST Status: Acute Comment: on Tamiflu (3) DM type 2 (diabetes mellitus, type 2) Status: Chronic Qualifiers: Diabetes mellitus complication status: with unspecified complications (4) Dementia Code(s): F03.90 - UNSPECIFIED DEMENTIA WITHOUT BEHAVIORAL DISTURBANCE Status: Chronic Qualifiers: Dementia type: Alzheimer's disease Dementia behavioral disturbance: without behavioral disturbance (5) Diastolic CHF, chronic Code(s): I50.32 - CHRONIC DIASTOLIC (CONGESTIVE) HEART FAILURE Status: Chronic Comment: stage C (6) Dyslipidemia Code(s): E78.5 - HYPERLIPIDEMIA, UNSPECIFIED Status: Chronic (7) H/O: CVA (cerebrovascular accident) Code(s): Z86.73 - PRSNL HX OF TIA (TIA), AND CEREB INFRC W/O RESID DEFICITS Status: Chronic Comment: 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 (9) Atrial fibrillation with RVR Code(s): I48.91 - UNSPECIFIED ATRIAL FIBRILLATION Status: Resolved Comment: resolved with Diltiazem drip (10) Hypernatremia Code(s): E87.0 - HYPEROSMOLALITY AND HYPERNATREMIA Status: Resolved Comment : fluids adjusted (11) Sepsis Code(s): A41.9 - SEPSIS, UNSPECIFIED ORGANISM Status: Resolved - Plan cont current plan of care, continue antibiotics, respiratory therapy * medication reviewed as below * symptomatic treatment * see discharge summerkita. Review of Systems - Review of Systems ENT: negative: Ear Pain, Ear Discharge, Nose Pain, Nose Discharge, Nose Congestion, Mouth Pain, Mouth Swelling, Throat Pain, Throat Swelling, Other Respiratory: negative: Cough, Dry, Shortness of Breath, Hemoptysis, SOB with Excertion, Pleuritic Pain, Sputum, Wheezing Cardiovascular: negative: chest pain, palpitations, orthopnea, paroxysmal nocturnal dyspnea, edema, light headedness, other Gastrointestinal: negative: Nausea, Vomiting, Abdominal Pain, Diarrhea, Constipation, Melena, Hematochezia, Other Genitourinary: negative: Dysuria, Frequency, Incontinence, Hematuria, Retention , Other Musculoskeletal: negative: Neck Pain, Shoulder Pain, Arm Pain, Back Pain, Hand Pain, Leg Pain, Foot Pain, Other - Medications/Allergies Allergies/Adverse Reactions: Allergies Allergy/AdvReac Type Severity Reaction Status Date / Time ciprofloxacin [From Cipro] Allergy Verified 08/18/18 01:07 Medications: Current Medications Acetaminophen (Tylenol) 650 mg PO Q4H PRN PRN Reason: Headache/Fever/Mild Pain (1-3) Last Admin: 08/27/18 16:16 Dose: 650 mg Amoxicillin/Clavulanate Potassium (Augmentin) 875 mg PO Q12HR [facility] Last Admin: 08/28/18 09:02 Dose: 875 mg Ascorbic Acid (Vitamin C) 500 mg PO BID [facility] Last Admin: 08/28/18 09:03 Dose: 500 mg Aspirin (Ecotrin) 81 mg PO DAILY [facility] Last Admin: 08/28/18 09:03 Dose: 81 mg Atorvastatin Calcium (Lipitor) 80 mg PO HS [facility] Last Admin: 08/27/18 21:59 Dose: 80 mg Benzonatate (Tessalon) 100 mg PO TID PRN PRN Reason: Cough Last Admin: 08/27/18 21:58 Dose: 100 mg Bisacodyl (Dulcolax) 10 mg PO DAILYPRN PRN PRN Reason: Constipation Bisacodyl (Dulcolax) 5 mg PO DAILY PRN PRN Reason: Constipation Bumetanide (Bumex) 1 mg PO DAILY [facility] Last Admin: 08/28/18 09:03 Dose: 1 mg Clopidogrel Bisulfate (Plavix) 75 mg PO DAILY [facility] Last Admin: 08/28/18 09:03 Dose: 75 mg Dextrose/Water (Dextrose 50%) 25 gm SLOW IVP PRN PRN PRN Reason: Hypoglycemia Digoxin (Lanoxin) 0.125 mg PO DAILY [facility] Last Admin: 08/28/18 09:03 Dose: 0.125 mg Diltiazem HCl (Cardizem) 60 mg PO ACHS [facility] Last Admin: 08/28/18 09:02 Dose: 60 mg Donepezil HCl (Aricept) 5 mg PO HS [facility] Last Admin: 08/27/18 21:59 Dose: 5 mg Doxycycline Hyclate (Vibramycin) 100 mg PO BID [facility] Last Admin: 08/28/18 09:02 Dose: 100 mg Duloxetine HCl (Cymbalta) 30 mg PO DAILY [facility] Last Admin: 08/28/18 09:03 Dose: 30 mg Enoxaparin Sodium (Lovenox) 30 mg SC 0900 [facility] Last Admin: 08/28/18 09:08 Dose: 30 mg Gabapentin (Neurontin) 600 mg PO TID [facility] Last Admin: 08/28/18 09:03 Dose: 600 mg Glimepiride (Amaryl) 1 mg PO BID [facility] Last Admin: 08/28/18 09:02 Dose: 1 mg Glucagon (Glucagon) 1 mg IM PRN PRN PRN Reason: Hypoglycemia Hydralazine HCl (Apresoline) 10 mg SLOW IVP Q4H PRN PRN Reason: SBP > 180 and HR < 70 Dextrose/Water (D5w) 1,000 mls @ 0 mls/hr IV .Q0M PRN PRN Reason: Hypoglycemia Last Admin: 08/22/18 21:09 Dose: 1,000 mls Insulin Human Lispro (Humalog) 0 units SC .MODERATE SLIDING SC PRN PRN Reason: Moderate Correctional Scale Last Admin: 08/27/18 17:29 Dose: 6 unit Insulin Human Lispro (Humalog) 0 units SC .BEDTIME SLIDING SC PRN PRN Reason: Bedtime Correctional Scale Last Admin: 08/22/18 21:28 Dose: 4 unit Insulin Human Regular (Humulin R) 5 units SC [facility] Last Admin: 08/28/18 09:04 Dose: 5 unit Iron/Minerals/Multivitamins (Theragran M) 1 tab PO DAILY [facility] Last Admin: 08/28/18 09:03 Dose: 1 tab Loratadine (Claritin) 10 mg PO DAILYPRN PRN PRN Reason: ALLERGY Lorazepam (Ativan) 0.5 mg PO [facility] Last Admin: 08/27/18 22:01 Dose: Not Given Ondansetron HCl (Zofran) 4 mg IVP Q6H PRN PRN Reason: Nausea/Vomiting Pantoprazole Sodium (Protonix) 40 mg PO DAILY [facility] Last Admin: 08/28/18 09:03 Dose: 40 mg Patient Own Medication (Patient's Home Medication) 0 each SC Q7D [facility] Polyethylene Glycol (Miralax) 17 gm PO DAILY PRN PRN Reason: Constipation Primidone (Mysoline) 150 mg PO [facility] Last Admin: 08/27/18 21:58 Dose: 150 mg Sodium Chloride (Flush - Normal Saline) 10 ml IVF Q12HR [facility] Last Admin: 08/28/18 09:05 Dose: 10 ml Sodium Chloride (Flush - Normal Saline) 10 ml IVF PRN PRN PRN Reason: Saline Flush Last Admin: 08/23/18 18:24 Dose: 10 ml
--- NOTE | 2018-08-28 10:58 | DIS ---
DATE OF ADMISSION: 08/18/2018 DATE OF DISCHARGE: ADDENDUM: Please see my discharge summary dictated on August 26, 2018, for more details. The patient was planned for discharge on that day, but the patient was on Cardizem drip and that is why on that day, we turned off Cardizem drip and started on Cardizem p.o. as well as we added digoxin as well. On that day, we did chest x-ray, which showed worsening of pneumonia and that is why, we restarted antibiotic therapy. Initially, we were only planning to discharge her on Augmentin, but on discharge, we added doxycycline as well on top of Augmentin for another 7 days given her worsening of pneumonia, and we also added digoxin on discharge medication at that time based on her heart rate control. Since then, the patient is off Cardizem drip and her rate is under control and she is hemodynamically stable. She is afebrile. She will finish above-mentioned medication. This patient is at high risk for recurrent admission given her bed-bound status and multiple comorbidities. Please see my discharge summary from August 26, for more detail and please see my progress note from today for more detail as well. Otherwise, the patient is stable for discharge today. Job ID: [id number]
[2018-08-28] MEDS: HumaLOG 300 UNITS/3 ML VIAL SC PRN (11:52)
[2018-08-28 15:09] VITALS: BP 169/72; TEMP 98.7
== END 2018-08-28 15:50 | DRG 871 ==
LOC: ERS 21:24 → IMCU/EMU 08-18 00:03 → 2NO 08-21 19:13
PROVIDERS: ADMIT Internal Medicine; ATTEND Internal Medicine
DX: A41.9 Sepsis, unspecified organism (principal); J96.01 Acute respiratory failure with hypoxia; J10.08 Influenza due to other identified influenza virus with other specified pneumonia; Z66 Do not resuscitate; I13.0 Hypertensive heart and chronic kidney disease with heart failure and stage 1 through stage 4 chronic kidney disease, or unspecified chronic kidney disease; I50.32 Chronic diastolic (congestive) heart failure; N17.9 Acute kidney failure, unspecified; E87.0 Hyperosmolality and hypernatremia; G93.40 Encephalopathy, unspecified; N18.3 Chronic kidney disease, stage 3 (moderate); K21.9 Gastro-esophageal reflux disease without esophagitis; E11.22 Type 2 diabetes mellitus with diabetic chronic kidney disease; E11.40 Type 2 diabetes mellitus with diabetic neuropathy, unspecified; R65.20 Severe sepsis without septic shock; G30.9 Alzheimer's disease, unspecified; F02.80 Dementia in other diseases classified elsewhere, unspecified severity, without behavioral disturbance, psychotic disturbance, mood disturbance, and anxiety; E78.5 Hyperlipidemia, unspecified; I48.2 Chronic atrial fibrillation; Z79.4 Long term (current) use of insulin; Z79.02 Long term (current) use of antithrombotics/antiplatelets; Z90.49 Acquired absence of other specified parts of digestive tract; Z88.1 Allergy status to other antibiotic agents; Z90.710 Acquired absence of both cervix and uterus; Z79.82 Long term (current) use of aspirin; Z79.899 Other long term (current) drug therapy; Z86.73 Personal history of transient ischemic attack (TIA), and cerebral infarction without residual deficits
CPT/HCPCS: 36415; 36416; 71045; 80048; 80053; 80202; 82805; 85025; 93005; 93010; 94640; 99285; J1160; J1650; J1815; J2543; J3370; J3490; J7050; J7620